=== PATIENT | male | born 1955 | race Caucasian/White ===

== ENCOUNTER 2024-04-08 10:03 | Inpatient (IN) | payer MEDICARE, SELFPAY ==
[2024-04-08] VITALS (9 sets, daily range): BP systolic 127–153; BP diastolic 84–91; PULSE 66–86; RESP 12–18; TEMP 36.9–37.3; O2SAT 92–96; BMI 25.2
--- NOTE | ~2024-04-08 | XR_ITS ---
EXAMINATION: XR CHEST CLINICAL INFORMATION: sob COMPARISON: None available. TECHNIQUE: Frontal view of the chest was obtained. FINDINGS: Minor bibasilar atelectasis versus early infiltrates. Upper lungs clear. Heart size normal with normal caliber pulmonary vessels. XR/XR chest 1V IMPRESSION: Query early bibasilar pneumonitis versus scarring and atelectasis. Electronically signed by: Waldo Jung MD 04/08/2024 12:41 PM [place]
--- NOTE | ~2024-04-08 | CT_ITS ---
EXAMINATION: CT ABDOMEN AND PELVIS WITH CONTRAST CLINICAL INFORMATION: Diffuse abdominal pain. COMPARISON: None available. TECHNIQUE: Multidetector volumetric images were obtained from the superior aspect of the liver through the pubic symphysis following administration 85 mL of Omnipaque 350 intravenous contrast. Sagittal and coronal reformatted images were obtained on the technologist's workstation. Oral contrast: No This CT examination was performed using dose optimization techniques as appropriate, variously including the following: *Automated exposure control *Adjustment of mA and/or kV according to patient size (this includes techniques or standardized protocols for targeted exams where dose is matched to indication/reason for exam; i.e. extremities or head) *Use of iterative reconstruction technique DLP: 428 mGy-cm FINDINGS: LUNG BASES: Linear scarring/atelectasis at both lung bases. No pleural effusion. LIVER, GALLBLADDER, AND BILIARY TREE: The liver is normal in size, shape, and attenuation. No focal hepatic lesion or biliary ductal dilatation is present. The gallbladder is unremarkable with no evidence of radiopaque gallstones, gallbladder wall thickening, or obvious pericholecystic inflammatory changes. PANCREAS: Unremarkable. SPLEEN: Unremarkable. ADRENAL GLANDS: Unremarkable. KIDNEYS AND URETERS: The kidneys are normal in size, shape, and attenuation. No hydronephrosis, hydroureter, or calculi seen. No perinephric stranding. BLADDER: Unremarkable. GASTROINTESTINAL TRACT: The small and large bowel are unremarkable. The appendix is unremarkable. ABDOMINAL WALL: No significant hernia is appreciated. LYMPH NODES: Normal. VASCULAR: Unremarkable. PELVIC VISCERA: Calcification in prostate. OSSEOUS STRUCTURES: No acute osseous abnormality. Multilevel degenerative spondylosis spine. Levoscoliosis mid lumbar spine. CT/CT abdomen pelvis w IV con IMPRESSION: No acute abnormality CT scan abdomen pelvis. Fleischner guidelines were followed. Electronically signed by: Vini Carver MD 04/08/2024 03:19 PM EST
--- NOTE | ~2024-04-08 | MR_ITS ---
EXAMINATION: MR ABDOMEN WITHOUT AND WITH CONTRAST CLINICAL INFORMATION: Rising lipase and abdominal pain. COMPARISON: Selected images of the abdomen and pelvic CT scan of 04/08/2024, 04/03/2024. Abdominal ultrasound of from 03/30/2024 and renal ultrasound of 04/05/2024. TECHNIQUE: MR abdomen was performed without and with use of 7.5 mL intravenous gadolinium contrast. Postcontrast images are performed in multiphase dynamic sequences. Imaging was performed in 3 planes. MRCP sequences were also obtained. Respiratory motion artifacts are present on multiple sequences limiting evaluation. Reportedly patient was having difficulty holding breath. FINDINGS: LUNG BASES: Bilateral mild basilar subsegmental atelectasis is noted. No pleural or pericardial effusion. LIVER, GALLBLADDER, AND BILIARY TREE: The liver is normal in size and contour. There is likely mild hepatic steatosis. There are 2 T2 hyperintense lesions in the posterior inferior right hepatic lobe medially (series 5 image 26), with the larger more posterior one measuring 1.1 cm in maximum dimension. A 0.7 cm T2 hyperintense lesion is noted in the superior liver (series 5 image 7) is 0.6 cm T2 hyperintense lesion in the caudate lobe (series 5 image 16). The hepatic lesions demonstrate hypointense signal on T1-weighted images. The evaluation of this lesions on the postcontrast images is limited due to respiratory motion artifacts however I believe that peripheral nodular discontinuous enhancement is noted at least in the posterior inferior right hepatic lobe lesions. Corresponding to largest lesion in the right inferior on the previous ultrasound note is made of hypoechoic lesion on the ultrasound of 03/30/2024. The liver lesions most probably represent hemangiomas. The gallbladder is unremarkable with no evidence of gallbladder wall thickening, or obvious pericholecystic inflammatory changes. No evidence of intrahepatic or extrahepatic biliary ductal dilatation. The common bile duct is normal in caliber measuring 0.3 cm. No filling defect is noted in the common mild duct. PANCREAS: There is a normal signal intensity of the pancreatic parenchyma with homogeneous enhancement. No focal liver lesion is seen. No peripancreatic stranding or fluid. No evidence of pancreas divisum or abnormal pancreatic ductal dilatation. SPLEEN: Normal. ADRENAL GLANDS: Normal. KIDNEYS AND URETERS: The kidneys are normal in size, shape, and enhance symmetrically. No hydronephrosis. No perinephric stranding. There is a 1.3 cm T1 and T2 hyperintense nonenhancing lesion in the lower pole of the left kidney laterally representing a proteinaceous cyst. A 0.4 cm simple cyst is noted in the upper pole of the right kidney. GASTROINTESTINAL TRACT: No abnormal bowel dilatation is noted. Note is again made of findings suggestive of small bowel malrotation with ligament of Treitz on the right side of the midline. PERITONEAL CAVITY: No evidence of free fluid. ABDOMINAL WALL: No significant hernia is appreciated. LYMPH NODES: No lymphadenopathy. VASCULAR: Aorta is normal in caliber and demonstrates normal enhancement. OSSEOUS STRUCTURES: Marrow signal normal. MR/MR abdomen wo/w con IMPRESSION: 1. No evidence of acute pancreatitis. No evidence of pancreatic mass. 2. No evidence of cholelithiasis or choledocholithiasis. No evidence of biliary ductal dilatation. 3. Mild hepatic steatosis. 4. Multiple T2 hyperintense lesions in the liver, largest measuring 1.1 cm in the posterior inferior right hepatic lobe. The evaluation of these lesions on the postcontrast images is limited due to respiratory motion artifacts however I believe that peripheral nodular discontinuous enhancement is noted at least in the posterior inferior right hepatic lobe lesions. The largest lesion in the right inferior hepatic lobe on the previous ultrasound corresponds to hypoechoic lesion on the ultrasound of 03/30/2024. The liver lesions most probably represent hemangiomas. Consider follow-up dynamic liver MRI in 6 months. 5. Findings suggestive of small bowel malrotation. Electronically signed by: Jo-Ann Burrell MD 04/12/2024 02:37 PM EST
--- NOTE | ~2024-04-08 | CT_ITS ---
EXAMINATION: CT HEAD WITHOUT CONTRAST CLINICAL INFORMATION: Headache. COMPARISON: None available. TECHNIQUE: Contiguous axial imaging was performed from the skull base to vertex without intravenous administration of contrast. This CT examination was performed using dose optimization techniques as appropriate, variously including the following: *Automated exposure control *Adjustment of mA and/or kV according to patient size (this includes techniques or standardized protocols for targeted exams where dose is matched to indication/reason for exam; i.e. extremities or head) *Use of iterative reconstruction technique DLP: 650 mGy-cm FINDINGS: There is no evidence of intracranial hemorrhage or extra-axial fluid collection. There is no mass effect, or edema. No CT evidence of acute territorial infarct. Ventricles, sulci, and cisterns are normal in size and configuration for patient age. No hydrocephalus. No midline shift. Negative hyperdense vessels sign. Negative subinsular ribbon sign. No significant white matter abnormalities. Sella appears normal. Mild atheromatous calcification of the bilateral carotid siphons and V4 segments vertebral arteries bilaterally. Globes and orbital contents image normally. No extracranial soft tissue abnormalities. Erosion of the membranous nasal septum. Mucous retention cyst right maxillary sinus. Otherwise the paranasal sinuses, mastoid air cells, and tympanic cavities are normally aerated. No suspicious bony abnormalities. Old nasal bone fractures suspected. CT/CT head/brain wo IV con IMPRESSION: 1. No acute intracranial abnormality. 2. Erosion of the membranous nasal septum, a finding which can be postsurgical, inflammatory, or be associated with cocaine abuse. 3. Mucous retention cyst right maxillary sinus. Electronically signed by: Luis Alfredo Davey MD 04/08/2024 04:08 PM [facility]
--- NOTE | 2024-04-08 10:34 | ED.GENADULT ---
HPI - General Adult General Chief complaint: General Medical Stated complaint: ABD PAIN,WEAK,NO KERWIN,FEVER X2W PER EMS Time Seen by Provider: 04/08/24 10:23 Source: patient Mode of arrival: EMS Limitations: no limitations History of Present Illness HPI narrative: THIS IS A VERY PLEASANT 68 YEARS OLD PATIENT PRESENTED TO THE EMERGENCY DEPARTMENT COMPLAINING OF ABDOMINAL PAIN GENERALIZED WEAKNESS POOR APPETITE NO EATING, HE WAS HOSPITALIZED A [facility], HE WAS TOLD THAT HE HAD E COLI INFECTION IN THE STOOLS HE HAS BEEN ON NOW FOR ABOUT 2 DAYS BUT UNABLE TO EAT Onset (ago): week(s) (2) Radiation: non-radiation Severity: moderate Quality: burning Pain Consistency: constant Relieving factors: none Associated symptoms: fever/chills, loss of appetite and malaise Related Data Home Medications ?Medication ?Instructions ?Recorded ?Confirmed L.acidophil,salivari-Bifido 1 cap PO QID 04/08/24 04/08/24 bifidum-Strep thermoph 175 mg capsule (Acidophilus Probiotic Blend) dicyclomine 10 mg capsule 10 mg PO Q6H PRN Abdominal 04/08/24 04/08/24 Discomfort omeprazole 40 mg capsule,delayed 40 mg PO BID@0630,1630 04/08/24 04/08/24 release ondansetron 4 mg disintegrating 4 mg PO Q8H PRN Nausea And Vomiting 04/08/24 04/08/24 tablet oxycodone 5 mg tablet 5 mg PO Q4H PRN moderate to severe 04/08/24 04/08/24 pain simethicone 80 mg chewable tablet 80 mg PO QID PRN flatulence 04/08/24 04/08/24 Previous Rx's ?Medication ?Instructions ?Recorded psyllium husk 3.4 gram/5.4 gram 1 tbsp PO DAILY #660 grams 04/11/24 oral powder (Metamucil) simethicone 80 mg chewable tablet 80 mg PO QID PRN abdominal 04/13/24 (Gas Relief (simethicone)) distention #120 tabs Allergies Allergy/AdvReac Type Severity Reaction Status Date / Time No Known Allergies Allergy Verified 04/08/24 10:34 Review of Systems Constitutional: Constitutional: Reports fatigue, Reports fever(s) and Reports poor appetite Gastrointestinal: Gastrointestinal: Reports abdominal pain Endocrine: Endocrine: Reports fatigue PMFSH Past Medical History PMFSH Narrative: DENIES Social History Social History Housing: House Do you presently have visiting nurse or other home services: No Alcohol intake: current Alcohol intake frequency: a few times a month Patient Tobacco Use Status: Never used Tobacco Advance Directives Date on File: 04/09/24 service: No Physical Exam ED Vital Signs: Vital Signs - 24 hr 04/08/24 10:29 04/08/24 10:46 04/08/24 11:17 Temperature 98.5 F 98.5 F 98.8 F Pulse Rate 74 74 82 Respiratory Rate 18 18 16 Blood Pressure 127/86 127/86 149/91 H Pulse Oximetry 94 94 96 Oxygen Delivery Method Room Air Room Air Room Air 04/08/24 12:03 04/08/24 14:07 Temperature 98.6 F Pulse Rate 80 78 Respiratory Rate 14 16 Blood Pressure 141/86 H 137/84 Pulse Oximetry 95 92 Oxygen Delivery Method Room Air Room Air BMI result Body Mass Index 25.2 MILD DISTRESS Const General: cooperative Nutritional Appearance: average body habitus Orientation/consciousness: patient oriented x3 HENMT Head: Yes normal to inspection Face and sinus: Yes normal facial exam Neck Neck: Yes normal visual inspection Chest Chest palpation & inspection: normal inspection of the chest Resp Effort & Inspection: normal respiratory effort Auscultation: clear to auscultation bilaterally Cardio Jugular venous distension: no JVD Palpation: normal PMI Rate: regular rate Rhythm: regular rhythm Bruits: no abdominal aortic bruits GI Inspection: Yes normal to inspection Palpation (GI): No Abdominal aortic bruit present, not soft, not firm and nontender Auscultation: normal bowel sounds Skin General skin exam: no rashes or lesions noted, elasticity normal and turgor normal Neuro General: patient oriented x3 Course Reevaluation(s) Reevaluation #1: SEEN BY GI DR FIELD IN ED,HE HAS ELEVATED LIPASE,WILL ADMIT FOR OBS Time: 15:51 Medications Administered Discontinued Medications Generic Name Dose Route Start Last Admin Trade Name Freq PRN Reason Stop Dose Admin Acetaminophen/Butalbital/Caffeine 1 tab 04/08/24 22:06 04/09/24 21:38 Butalb/Acetamin/Caff 50/325/40 Tablet PO 1 tab Q4H PRN Administration Migraine Headache Dicyclomine HCl 10 mg 04/08/24 17:37 04/11/24 20:16 Dicyclomine Hcl 10 Mg Capsule PO 10 mg Q6H PRN Administration Abdominal Discomfort Docusate Sodium 200 mg 04/08/24 21:00 04/12/24 21:48 Docusate Sodium 100 Mg Capsule PO 200 mg BEDTIME JOVANY Administration Enoxaparin Sodium 40 mg 04/08/24 19:00 04/12/24 18:07 Enoxaparin Sodium 40 Mg/0.4 Ml Syringe SUBCUT Not Given Q24H JOVANY Gadobutrol 7.5 ml 04/11/24 12:33 04/11/24 12:34 Gadobutrol 7.5 Ml Vial IVPUSH 04/11/24 12:34 7.5 ml ONCE ONE Administration Sodium Chloride 1,000 mls @ 999 mls/hr 04/08/24 10:30 04/08/24 12:36 Ns IVCONT 04/08/24 11:30 Infused .Q1H1M JOVANY Infusion Sodium Chloride 1,000 mls @ 100 mls/hr 04/08/24 13:30 04/08/24 17:58 Ns IVCONT Infused .Q10H JOVANY Infusion Lactated Ringer's 1,000 mls @ 100 mls/hr 04/08/24 17:45 04/09/24 07:26 Lr IVCONT 04/09/24 03:44 Infused .Q10H JOVANY Infusion Iohexol 85 ml 04/08/24 12:15 04/08/24 12:15 Iohexol 350 Mg/Ml 100 Ml Infus..Btl IV 04/08/24 12:16 85 ml ONCE ONE Administration Morphine Sulfate 4 mg 04/08/24 12:58 04/08/24 13:08 Morphine Sulfate 4 Mg/Ml Cartridge IVPUSH 04/08/24 12:59 4 mg ONCE ONE Administration Protocol Omeprazole 40 mg 04/09/24 06:30 04/10/24 15:41 Omeprazole 40 Mg Capsule. PO Not Given BID@0630,1630 [facility] Omeprazole 20 mg 04/11/24 06:30 04/13/24 05:53 Omeprazole 20 Mg Capsule. PO 20 mg BID@0630,1630 JOVANY Administration Ondansetron HCl 4 mg 04/08/24 10:29 04/08/24 10:57 Ondansetron Hcl 4 Mg/2 Ml Vial IVPUSH 04/08/24 10:30 4 mg ONCE ONE Administration Ondansetron HCl 4 mg 04/08/24 12:58 04/08/24 13:08 Ondansetron Hcl 4 Mg/2 Ml Vial IVPUSH 04/08/24 12:59 Not Given ONCE ONE Oxycodone HCl 5 mg 04/08/24 17:38 04/08/24 18:02 Oxycodone Hcl Immed Release 5 Mg Tablet PO 5 mg Q6H PRN Administration Pain, Moderate(Pain Scale 4-6) Polyethylene Glycol 17 gm 04/08/24 17:32 04/12/24 16:16 Polyethylene Glycol 3350 17 Gm Powd.Pack PO 17 gm DAILY PRN Administration Constipation Polyethylene Glycol 17 gm 04/11/24 16:37 04/11/24 16:53 Polyethylene Glycol 3350 17 Gm Powd.Pack PO 04/11/24 16:38 17 gm ONCE ONE Administration Potassium Chloride 40 meq 04/11/24 07:35 04/11/24 08:09 Potassium Chloride Er 20 Meq Tab.Er.Prt PO 04/11/24 07:36 40 meq ONCE ONE Administration Potassium Chloride 20 meq 04/11/24 15:06 04/11/24 15:27 Potassium Chloride Packet 20 Meq Packet PO 04/11/24 15:07 20 meq ONCE ONE Administration Simethicone 80 mg 04/08/24 17:37 04/12/24 16:16 Simethicone 80 Mg Tab.Chew PO 80 mg QID PRN Administration flatulence Sodium Chloride 3 ml 04/09/24 00:00 04/13/24 09:22 0.9 % Sodium Chloride Flush 3 Ml Syringe IVFLUSH 3 ml QSHIFT JOVANY Administration Medical Decision Making Medical Decision Making MDM Narrative: PATIENT PRESENTED WITH WEAKNESS ABDOMINAL Differential Diagnosis Differential Diagnoses: The differential diagnosis associated with the presentation includes RLL SEEN ROOM/PERFORATED BOWEL/COLITIS/DIVERTICULITIS Admission/Observation Consideration of admission/observation: Escalation of care including admission/observation considered Consult Healthcare Provider Management of the patient was discussed with: [facility] DR FIELD GI Lab Data [facility] Lab Attestation statement: I reviewed the patient's lab results. 04/11/24 05:43 04/12/24 05:31 Labs: Lab Results 04/08/24 04/08/24 04/08/24 Range/Units 10:39 10:48 12:11 WBC 8.8 (4.8-10.8) X10*3/uL RBC 5.09 (4.60-5.80) X10*6/uL Hgb 15.5 (14.0-18.0) g/dl Hct 43.8 (42.0-52.0) % MCV 86.1 (80.0-98.0) fL MCH 30.5 (27.0-33.0) pg MCHC 35.4 (31.0-36.0) g/dl RDW 12.7 (11.0-16.0) % Plt Count 204 (160-400) X10*3/uL MPV 9.1 L (9.4-12.4) fL Immature Gran % (Auto) 0.5 H (0.0-0.4) % Neut % (Auto) 81.4 H (45-73) % Lymph % (Auto) 11.1 L (20-40) % [place] % (Auto) 6.6 (2-11) % Eos % (Auto) 0.2 (0-4) % Baso % (Auto) 0.2 (0-2) % Lymph # (Auto) 1.0 L (1.2-4.9) X10*3/uL [place] # (Auto) 0.6 (0.1-1.2) X10*3/uL Eos # (Auto) 0.0 (0.0-0.4) X10*3/uL Baso # (Auto) 0.0 (0.0-0.2) X10*3/uL Abs Immat Gran (auto) 0.04 H (0.00-0.03) X10*3/uL Absolute Neuts (auto) 7.2 (2.0-8.3) x10*3/uL Absolute Nucleated RBC 0.000 (0.0-0.012) X10*3/uL Nucleated RBC % (auto) 0.0 (0.0-0.2) /100WBC ESR 6 (0-15) MM/HR Sodium 138 (135-145) mmol/L Potassium 3.8 (3.3-5.1) mmol/L Chloride 99 (96-108) mmol/L Carbon Dioxide 30 H (22-29) mmol/L Anion Gap 13 (12-20) BUN 13 (9-16) mg/dL Creatinine 0.88 (0.5-1.4) mg/dL Estim Creat Clear Calc 78.8 Estimated GFR > 60 Random Glucose 107 (60-115) mg/dL Lactic Acid 1.0 (0.5-2.0) mmol/L Calcium 9.2 (8.4-10.2) mg/dL Total Bilirubin 0.7 (0.0-1.0) mg/dL AST 18 (5-37) U/L ALT 14 (0-40) U/L Alkaline Phosphatase 29 L (39-117) U/L C-Reactive Protein 0.42 (< or = 0.50) mg/dL Total Protein 7.2 (6.5-8.0) g/dL Albumin 4.2 (3.5-5.0) g/dL Lipase 200 H (8-78) U/L Urine Color Yellow Urine Appearance Turbid Urine pH 7.0 (5.0-9.0) Ur Specific [place] 1.015 (1.005-1.025) Urine Protein Negative (Neg-Trace) mg/dL Urine Glucose (UA) Negative (Negative) mg/dL Urine Ketones Trace (Negative) mg/dL Urine Blood Negative (Negative) Urine Nitrite Negative (Negative) Ur Leukocyte Esterase Negative (Negative) Urine RBC 0-2 (0-2) /HPF Urine WBC 0-5 (0-5) /HPF Ur Squamous Epith Cells 0-2 (0-2) /HPF Calcium Oxalate Crystal Present Other Crystals Present Urine Bacteria None Seen (None Seen) Hyaline Casts 0-2 (0-2) /LPF Independent Interpretation I performed an independent interpretation of an: CT Scan Radiology Impression Discussion of test interpretation with radiology: I have reviewed the radiologist's reading. Radiologist Impression: LYMPH NODES: Normal. VASCULAR: Unremarkable. PELVIC VISCERA: Calcification in prostate. OSSEOUS STRUCTURES: No acute osseous abnormality. Multilevel degenerative spondylosis spine. Levoscoliosis mid lumbar spine. CT/CT abdomen pelvis w IV con IMPRESSION: No acute abnormality CT scan abdomen pelvis. Fleischner guidelines were followed. Electronically signed by: Vini Carver MD 04/08/2024 03:19 PM EST Dictated By: Vini Carver MD Signed By: <Electronically signed by Vini Carver MD in OV> 04/08/24 [id number] Independent Historian Clinical information obtained from an independent historian. History obtained from or confirmed by: Spouse External Record Review External record reviewed: Outpatient record REVIEWED D/C SUMMARY FROM [facility] Discharge Plan Discharge Clinical Impression: Abdominal pain Qualifiers: Abdominal location: generalized Qualified Code(s): R10.84 - Generalized abdominal pain Pancreatitis Qualifiers: Chronicity: acute Pancreatitis type: other Acute pancreatitis complication: unspecified Qualified Code(s): K85.80 - Other acute pancreatitis without necrosis or infection Patient Disposition: Admitted As Inpatient Interventions: Admission Worksheet (ED) Last Done: 04/09/24 10:32 Discharge Date/Time: 04/09/24 11:01
[2024-04-08 10:45] LABS: MANUAL DIFF FLAG NO
[2024-04-08 10:47] LABS: Basophils Percent Auto 0.2 % (0-2); Eosinophils Percent Auto 0.2 % (0-4); Hematocrit 43.8 % (42.0-52.0); Hemoglobin 15.5 g/dl (14.0-18.0); Imm Gran Abs Auto 0.04 X10*3/uL (0.00-0.03); Imm Gran Pct Auto 0.5 % (0.0-0.4); Lymphocytes Percent Auto 11.1 % (20-40); Mean Corpuscular HGB Conc 35.4 g/dl (31.0-36.0); Mean Corpuscular Hemoglobin 30.5 pg (27.0-33.0); Mean Corpuscular Volume 86.1 fL (80.0-98.0); Mean Platelet Volume 9.1 fL (9.4-12.4); Monocytes Absolute Auto 0.6 X10*3/uL (0.1-1.2); Monocytes Percent Auto 6.6 % (2-11); Neutrophils Absolute Auto 7.2 x10*3/uL (2.0-8.3); Neutrophils Percent Auto 81.4 % (45-73); Platelet Count 204 X10*3/uL (160-400); Red Blood Count 5.09 X10*6/uL (4.60-5.80); Red Cell Distribution Width 12.7 % (11.0-16.0); White Blood Count 8.8 X10*3/uL (4.8-10.8)
[2024-04-08] MEDS: 0.9 % Sodium Chloride 1,000 ML 999 ML IVCONT (10:57)
[2024-04-08] MEDS: ondansetron HCL 4 MG/2 ML VIAL IVPUSH (10:57)
[2024-04-08 10:59] LABS: C Reactive Protein 0.42 mg/dL (< or = 0.50)
[2024-04-08 11:04] LABS: Alanine Aminotransferase 14 U/L (0-40); Albumin Level 4.2 g/dL (3.5-5.0); Alkaline Phosphatase 29 U/L (39-117); Anion Gap 13 (12-20); Aspartate Amino Transferase 18 U/L (5-37); Bilirubin Total 0.7 mg/dL (0.0-1.0); Blood Urea Nitrogen 13 mg/dL (9-16); Calcium 9.2 mg/dL (8.4-10.2); Carbon Dioxide 30 mmol/L (22-29); Chloride 99 mmol/L (96-108); Creatinine Clr Calc Pharmacy 78.8; Estimated Glomerular Filt Rate > 60; Glucose Random 107 mg/dL (60-115); Lipase 200 U/L (8-78); Potassium 3.8 mmol/L (3.3-5.1); Sodium 138 mmol/L (135-145); Total Protein 7.2 g/dL (6.5-8.0)
[2024-04-08 11:30] LABS: Erythrocyte Sedimentation Rate 6 MM/HR (0-15)
--- NOTE | 2024-04-08 12:11 | PHA.MEDREC ---
Pharmacy Consult ? Medication Reconciliation Pharmacy has completed the medication reconciliation, utilized faxed discharge packet from [facility] from 04/06/2024.
[2024-04-08] MEDS: iohexoL 350 MG/ML 100 ML INFUS..BTL 85 ML IV (12:15)
[2024-04-08 12:23] LABS: Appearance Urine Turbid; Color Urine Yellow; Glucose Urine UA Negative (Negative); Leukocyte Esterase Urine Negative (Negative); Nitrite Urine Negative (Negative); Specific Gravity - Urine 1.015 (1.005-1.025); Urine Blood Negative (Negative); Urine Ketones Trace mg/dL (Negative); Urine Protein Negative (Neg-Trace)
[2024-04-08 12:45] LABS: Bacteria Urine None Seen (None Seen); Calcium Oxalate Crystals Urine Present; Hyaline Casts Urine 0-2 /LPF (0-2); Other Crystals Urine Present; RBC Urine 0-2 /HPF (0-2); Squamous Epithelial Cell Urine 0-2 /HPF (0-2); WBC Urine 0-5 /HPF (0-5)
[2024-04-08] MEDS: Morphine Sulfate 4 MG/ML CARTRIDGE IVPUSH (13:08)
[2024-04-08] MEDS: 0.9 % Sodium Chloride 1,000 ML 100 ML IVCONT (13:42)
--- NOTE | 2024-04-08 17:06 | PC.NURSE ---
Patient had been NPO since this am (states has not been able to get solids down in days). Patient/family aware no food/fluids until okayd by MD. At 4:45 this RN went into patients room and patient with alton at [facility]. Patient stating he has been taking sips because his family gave it to him. MRI and provider aware , mri stating will need to be done in the am
--- NOTE | 2024-04-08 17:42 | P.HPHOSP_ITS ---
History of Present Illness Date of Service: 04/08/24 Chief Complaint: Abdominal pain 68-yr old gentleman with no significant pmhx discharged from [facility] today after requiring treatment for abdominal pain, decreased appetite, generalized body ache and was diagnosed to have 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 his symptoms started after Thanksgiving, when he complained of mild stomach pain, decreased appetite, fatigue ,generalized body ache associated with urinary frequency, COVID, flu and tick-borne panel was negative, UA showed trace leukocytosis he was prescribed Macrobid but patient did not take anti biotics since had no worsening of urinary symptoms, and UC was negative, next day patient went to the emergency room for chills and fever of 99.5 night sweats ,persistent abdominal pain, he was recommended follow-up with worsening symptoms, on patient again visited ED with ongoing symptoms and was tested positive for strep throat without any symptoms of throat pain,no lymphadenopathy, he was given prescription of penicillin VK for 7 days and he was given Excedrin for headache, he was recommended stool softeners and MiraLax for constipation, 04/03 pt. went to see his PCP for ongoing symptoms of pain, fever, anorexia ,intermittent chills, subsequently he was sent to ED at [facility] since labs showed elevated lipase, he got admitted to [facility] on 04/03 where he underwent extensive testing CT abd/ pelvis showed no acute abnormality to suggest acute pancreatitis, showed signs of inflammation of intestine and colon, upper endoscopy showed mild inflammation in stomach/ duodenum likely exacerbated by Excedrin and sigmoidoscopy report not available, GI panel positive for entero toxigenic E coli, he was treated conservatively with fluids and antibiotics that were later discontinued, in regard to gastritis he was treated with PPI, his constipation was attributed to decreased oral intake ,stool softeners and laxatives were administered and he was discharged home on oxycodone, dicyclomine antiemetics, simethicone and omeprazole, he was recommended to discontinue Excedrin, penicillin V and sucralfate, due to ongoing symptoms of abdominal pain ,decreased appetite, chills and constipation, patient presented to [place] ED, he denies nausea, no vomiting last bowel movement few days ago was chocolate soup color, he denies throat pain, denies urinary frequency, no urgency, no high-grade fevers, denies sob ,no cough,workup in the ED showed sodium 138, potassium 3.8, normal renal function and LFTs,Elevated lipase 200, UA unremarkable, chest x-ray showed question early bibasilar pneumonitis versus scarring and atelectasis, head CT showed no acute intracranial abnormality, erosion of the membranous nasal septum, mucous retention cyst right maxillary sinus, CT abdomen and pelvis showed no acute abnormality. Review of Systems 2 Review of Systems: General no dizziness ,+ chills. CVS no chest pain, no palpitation. Respiratory no cough no sob Gastrointestinal no nausea no vomiting, abdominal pain and constipation no urgency, no frequency All other system reviewed and are negative PMFSH Pertinent family history: No family history of premature coronary artery disease Social History Housing: House Do you presently have visiting nurse or other home services: No Alcohol intake: current Alcohol intake frequency: a few times a month Patient Tobacco Use Status: Never used Tobacco Advance Directives Date on File: 04/09/24 Meds Allergies Allergy/AdvReac Type Severity Reaction Status Date / Time No Known Allergies Allergy Verified 04/08/24 10:34 Active Medications: Current Medications Acetaminophen (Acetaminophen 325 Mg Tablet) 650 mg PO Q6H PRN PRN Reason: Pain, Mild (Pain Scale 1-3), fever or headache Al Hydroxide/Mg Hydroxide (Magnesium Hydrox/Alum Hydrox 30 Ml Oral.Susp) 30 ml PO Q4H PRN PRN Reason: Heartburn Calcium Carbonate (Calcium Carbonate 750 Mg Tab.Chew) 750 mg PO Q4H PRN PRN Reason: Heartburn Dicyclomine HCl (Dicyclomine Hcl 10 Mg Capsule) 10 mg PO Q6H PRN PRN Reason: Abdominal Discomfort Docusate Sodium (Docusate Sodium 100 Mg Capsule) 200 mg PO BEDTIME JOVANY Enoxaparin Sodium (Enoxaparin Sodium 40 Mg/0.4 Ml Syringe) 40 mg SUBCUT Q24H [facility] Sodium Chloride (Ns) 1,000 mls @ 100 mls/hr IVCONT .Q10H [facility] Last Admin: 04/08/24 13:42 Dose: 100 mls/hr Lactated Ringer's (Lr) 1,000 mls @ 100 mls/hr IVCONT .Q10H [facility] Stop: 04/09/24 03:44 Magnesium Hydroxide (Milk Of Magnesia 30 Ml Oral.Susp) 30 ml PO DAILY PRN PRN Reason: Constipation Melatonin (Melatonin 3 Mg Tablet) 6 mg PO BEDTIME PRN PRN Reason: Insomnia Morphine Sulfate (Morphine Sulfate 4 Mg/Ml Cartridge) 3 mg IVPUSH Q4H PRN; Protocol PRN Reason: Pain, Severe (Pain Scale 7-10) Omeprazole (Omeprazole 40 Mg Capsule.Dr) 40 mg PO BID@0630,1630 [facility] Oxycodone HCl (Oxycodone Hcl Immed Release 5 Mg Tablet) 5 mg PO Q6H PRN PRN Reason: Pain, Moderate(Pain Scale 4-6) Polyethylene Glycol (Polyethylene Glycol 3350 17 Gm Powd.Pack) 17 gm PO DAILY PRN PRN Reason: Constipation Simethicone (Simethicone 80 Mg Tab.Chew) 80 mg PO QID PRN PRN Reason: flatulence Sodium Chloride (0.9 % Sodium Chloride Flush 3 Ml Syringe) [facility] Medications ?Medication ?Instructions ?Recorded ?Confirmed ?Last Taken ?Type L.acidophil,salivari-Bifido 1 cap PO QID 04/08/24 04/08/24 Unknown History bifidum-Strep thermoph 175 mg capsule (Acidophilus Probiotic Blend) dicyclomine 10 mg capsule 10 mg PO Q6H PRN Abdominal 04/08/24 04/08/24 Unknown History Discomfort omeprazole 40 mg capsule,delayed 40 mg PO BID@0630,1630 04/08/24 04/08/24 Unknown History release ondansetron 4 mg disintegrating 4 mg PO Q8H PRN Nausea And Vomiting 04/08/24 04/08/24 Unknown History tablet oxycodone 5 mg tablet 5 mg PO Q4H PRN moderate to severe 04/08/24 04/08/24 Unknown History pain simethicone 80 mg chewable tablet 80 mg PO QID PRN flatulence 04/08/24 04/08/24 Unknown History Physical Exam 2 Vital Signs and Narrative: Vital Signs: Last Vital Signs Temp 98.7 F 04/08/24 16:16 Pulse 75 04/08/24 16:16 Resp 12 04/08/24 16:16 BP 139/88 04/08/24 16:16 Pulse Ox 92 04/08/24 16:16 O2 Del Method Room Air 04/08/24 16:16 BMI result Body Mass Index 25.2 Const: Other: General awake alert x3, in no acute distress. Moist mucous membrane Anicteric sclera Neck supple no JVD. CVS regular rate rhythm, Respiratory lungs clear to auscultation, no respiratory distress, Gastrointestinal abdomen soft, non tender, bowel sounds audible, no guarding , no rigidity. Extremities no edema. Neuro non focal Skin no rash Psych appropriate affect Results Labs 04/08/24 10:39 04/08/24 10:39 Labs: Laboratory Results - last 24 hr 04/08/24 04/08/24 04/08/24 10:39 10:48 12:11 MCV 86.1 MCH 30.5 MCHC 35.4 RDW 12.7 Plt Count 204 MPV 9.1 L Immature Gran % (Auto) 0.5 H Neut % (Auto) 81.4 H Lymph % (Auto) 11.1 L [place] % (Auto) 6.6 Eos % (Auto) 0.2 Baso % (Auto) 0.2 Lymph # (Auto) 1.0 L [place] # (Auto) 0.6 Eos # (Auto) 0.0 Baso # (Auto) 0.0 Abs Immat Gran (auto) 0.04 H Absolute Neuts (auto) 7.2 Absolute Nucleated RBC 0.000 Nucleated RBC % (auto) 0.0 ESR 6 Anion Gap 13 Estim Creat Clear Calc 78.8 Estimated GFR > 60 Random Glucose 107 Lactic Acid 1.0 Calcium 9.2 Total Bilirubin 0.7 AST 18 ALT 14 Alkaline Phosphatase 29 L C-Reactive Protein 0.42 Total Protein 7.2 Albumin 4.2 Lipase 200 H Urine Color Yellow Urine Appearance Turbid Urine pH 7.0 Ur Specific [place] 1.015 Urine Protein Negative Urine Glucose (UA) Negative Urine Ketones Trace Urine Blood Negative Urine Nitrite Negative Ur Leukocyte Esterase Negative Urine RBC 0-2 Urine WBC 0-5 Ur Squamous Epith Cells 0-2 Calcium Oxalate Crystal Present Other Crystals Present Urine Bacteria None Seen Hyaline Casts 0-2 Imaging Radiologist's Impressions: Impressions Chest X-Ray 04/08/24 10:33 IMPRESSION: Query early bibasilar pneumonitis versus scarring and atelectasis. Electronically signed by: Waldo Jung MD 04/08/2024 12:41 PM EST Abdomen/Pelvis CT 04/08/24 12:12 IMPRESSION: No acute abnormality CT scan abdomen pelvis. Fleischner guidelines were followed. Electronically signed by: Vini Carver MD 04/08/2024 03:19 PM EST RP Head CT 04/08/24 14:17 IMPRESSION: 1. No acute intracranial abnormality. 2. Erosion of the membranous nasal septum, a finding which can be postsurgical, inflammatory, or be associated with cocaine abuse. 3. Mucous retention cyst right maxillary sinus. Electronically signed by: Luis Alfredo Dvaey MD 04/08/2024 04:08 PM EST RP Assessment and Plan (1) Abdominal pain: Qualifiers: Abdominal location: generalized Qualified Code(s): R10.84 - Generalized abdominal pain Status: Acute Plan 68-year-old gentleman with no significant past medical history presented with ongoing symptoms of abdominal pain, chills, decreased appetite, fatigue, constipation of several days duration, patient discharged from [facility] today with a diagnosis of enteritis and colitis due to entero toxigenic E coli managed conservatively as well as gastritis and duodenitis noted on upper endoscopy of note patient underwent a colonoscopy on 03/17 which showed an early tubular adenoma, patient being admitted to [facility] due to persistent symptoms of abdominal pain, chills, decreased appetite and constipation. Generalized abdominal pain No acute etiology noted question related to ongoing enteritis/colitis due to E coli Elevated lipase, with no imaging evidence of acute pancreatitis Will hold MRCP with normal LFTs and normal CT abdomen and pelvis Follow gastroenterology input. Continue supportive care with antiemetics, analgesics IV fluids and stool softeners Continue regular bland diet. Follow blood cultures Gastritis/duodenitis continue PPI, avoid NSAIDs Group a strep throat, asymptomatic , avoid antibiotics Linear scarring/atelectasis at both lung bases, no evidence of acute infection, asymptomatic with normal WBC, no fever,rec OOB and IS. DVT prophylaxis with Lovenox/ambulation In my clinical judgment patient requires 2 night inpatient hospitalization for management of ongoing abdominal pain with IV fluids IV analgesics and close clinical monitoring/expert consultation. Quality Stroke Does the patient have a stroke diagnosis?: No VTE Prior VTE?: No VTE Risk Level:: Medical - moderate - high VTE Device Contraindication: Treatment Not Indicated VTE Drug Contraindication: N/A - Med Ordered
[2024-04-08] MEDS: Lactated Ringers 1,000 ML 100 ML IVCONT (18:02)
[2024-04-08] MEDS: oxyCODONE HCl Immed Release 5 MG TABLET PO (18:02)
--- NOTE | 2024-04-08 18:15 | MHC.EDTECH ---
incentive spirometer was given to pt with education on how to properly use it. pt has a thorough understanding on the use and showed that he knows how to use it properly. RN made aware.
--- NOTE | 2024-04-08 18:32 | PC.NURSE ---
Patient c/o of 10/07 headache, oxycodone given as ordered. IVF infusing as ordered. Patient aware NPO after midnight. OOB ambulating to bathroom, gait steady.
--- NOTE | 2024-04-08 19:45 | PM.GICN ---
History of Present Illness Data of Consult Service Date: 04/08/24 Requesting physician: Rosy Olvera Primary Care Provider: Unknown Physician HPI Reason for consult: malaise 68-yr old gentleman who I am seeing for malaise and assorted symptoms. He presents with malaise, fatigue and poor appetite and vague mid abdominal discomfort without any relieving or worsening factors. He denies nausea or vomiting, but has had constipation and low grade fever. he first started to feel unwell after thanksgiving, and was eventually diagnosed with strep throat and given Pen V, but due to ongoing worsening sx he had tests done by PCP and eventually admitted to [facility] where he was found to have entero toxigenic E coli. He also had CT imaging with enteritis and EGD with gastritis. THe week before he got sick he also had a colonoscopy with a tubular adenoma removed. LABS: Sodium 138, potassium 3.8, normal renal function and LFTs,Elevated lipase 200, CRP neg UA unremarkable IMAGING: CT- a/p nml CT head- mucous retention cyst CXR: possible scarring at bases, pneumonitis Review of Systems Review of Systems: Constitutional : malaise ENT/Mouth : No sore throat, No Rhinorrhea Eyes: No Swelling, No Redness Cardiovascular : No Chest Pain, No SOB, No Edema Respiratory : No Cough, No Sputum, No Wheezing Gastrointestinal : see HPI Genitourinary : NO Dysuria, No Urinary Frequency, No Hematuria, No Urgency Musculoskeletal : No joint pain, No Myalgias, No Joint Swelling Skin : No Skin Lesions, No rash Neuro : + Weakness, No Numbness, No Dizziness, No Headache Psych : No Anxiety/Panic, No Depression Heme/Lymph: No Bruising, No Lymphadenopathy Endocrine : No Polyuria, No Polydipsia All other systems reviewed and are negative. [facility] Family History Pertinent family history: no FH of liver, bowel issues Social History Social History Alcohol intake: current Alcohol intake frequency: a few times a month Smoked in Last 30 Days: No Use of substances other than those prescribed or required for medical reasons: No Advance Directives: Yes Advance Directives Information Provided: Yes Advance Directives on File: No Do you have a plan to hurt others: No Plan Meds Allergies Allergy/AdvReac Type Severity Reaction Status Date / Time No Known Allergies Allergy Verified 04/08/24 10:34 Active Medications: Current Medications Acetaminophen (Acetaminophen 325 Mg Tablet) 650 mg PO Q6H PRN PRN Reason: Pain, Mild (Pain Scale 1-3), fever or headache Al Hydroxide/Mg Hydroxide (Magnesium Hydrox/Alum Hydrox 30 Ml Oral.Susp) 30 ml PO Q4H PRN PRN Reason: Heartburn Calcium Carbonate (Calcium Carbonate 750 Mg Tab.Chew) 750 mg PO Q4H PRN PRN Reason: Heartburn Dicyclomine HCl (Dicyclomine Hcl 10 Mg Capsule) 10 mg PO Q6H PRN PRN Reason: Abdominal Discomfort Docusate Sodium (Docusate Sodium 100 Mg Capsule) 200 mg PO BEDTIME JOVANY Enoxaparin Sodium (Enoxaparin Sodium 40 Mg/0.4 Ml Syringe) 40 mg SUBCUT Q24H [facility] Lactated Ringer's (Lr) 1,000 mls @ 100 mls/hr IVCONT .Q10H [facility] Stop: 04/09/24 03:44 Last Admin: 04/08/24 18:02 Dose: 100 mls/hr Magnesium Hydroxide (Milk Of Magnesia 30 Ml Oral.Susp) 30 ml PO DAILY PRN PRN Reason: Constipation Melatonin (Melatonin 3 Mg Tablet) 6 mg PO BEDTIME PRN PRN Reason: Insomnia Morphine Sulfate (Morphine Sulfate 4 Mg/Ml Cartridge) 3 mg IVPUSH Q4H PRN; Protocol PRN Reason: Pain, Severe (Pain Scale 7-10) Omeprazole (Omeprazole 40 Mg Capsule.Dr) 40 mg PO BID@0630,1630 [facility] Oxycodone HCl (Oxycodone Hcl Immed Release 5 Mg Tablet) 5 mg PO Q6H PRN PRN Reason: Pain, Moderate(Pain Scale 4-6) Last Admin: 04/08/24 18:02 Dose: 5 mg Polyethylene Glycol (Polyethylene Glycol 3350 17 Gm Powd.Pack) 17 gm PO DAILY PRN PRN Reason: Constipation Simethicone (Simethicone 80 Mg Tab.Chew) 80 mg PO QID PRN PRN Reason: flatulence Sodium Chloride (0.9 % Sodium Chloride Flush 3 Ml Syringe) 3 ml IVFLUSH QSHIFT [facility] Home Medications ?Medication ?Instructions ?Recorded ?Confirmed ?Last Taken ?Type L.acidophil,salivari-Bifido 1 cap PO QID 04/08/24 04/08/24 Unknown History bifidum-Strep thermoph 175 mg capsule (Acidophilus Probiotic Blend) dicyclomine 10 mg capsule 10 mg PO Q6H PRN Abdominal 04/08/24 04/08/24 Unknown History Discomfort omeprazole 40 mg capsule,delayed 40 mg PO BID@0630,1630 04/08/24 04/08/24 Unknown History release ondansetron 4 mg disintegrating 4 mg PO Q8H PRN Nausea And Vomiting 04/08/24 04/08/24 Unknown History tablet oxycodone 5 mg tablet 5 mg PO Q4H PRN moderate to severe 04/08/24 04/08/24 Unknown History pain simethicone 80 mg chewable tablet 80 mg PO QID PRN flatulence 04/08/24 04/08/24 Unknown History Physical Exam Vital Signs: Vital Signs: Last Vital Signs Temp 98.7 F 04/08/24 18:09 Pulse 66 04/08/24 18:09 Resp 15 04/08/24 18:09 BP 136/87 04/08/24 18:09 Pulse Ox 92 04/08/24 18:09 O2 Del Method Room Air 04/08/24 18:09 BMI result Body Mass Index 25.2 EXAM: GENERAL: The patient is well developed and nontoxic. VITAL SIGNS:see workflow HEENT: Nonicteric sclerae, PERRLA, EOMI. Oropharynx clear. Moist mucous membranes. Conjunctivae appear well perfused. No thyroid mass. CHEST: Chest wall is nontender. HEART: Regular rate and rhythm without murmurs. LUNGS: Clear to auscultation bilaterally but BS are more bronchovesicular ABDOMEN: Soft, positive bowel sounds, nontender, no organomegaly.no flank tenderness SKIN: No rash, no excessive bruising, petechiae, or purpura. NEUROLOGIC: Cranial nerves II-XII intact without motor/sensory deficit. Psych: normal affect Results Labs 04/08/24 10:39 04/08/24 10:39 Labs: Short CBC 04/08/24 Range/Units 10:39 WBC 8.8 (4.8-10.8) X10*3/uL Hgb 15.5 (14.0-18.0) g/dl Hct 43.8 (42.0-52.0) % Plt Count 204 (160-400) X10*3/uL BMP 04/08/24 10:39 Sodium 138 Potassium 3.8 Chloride 99 Carbon Dioxide 30 H BUN 13 Creatinine 0.88 Calcium 9.2 Liver Function 04/08/24 Range/Units 10:39 Total Bilirubin 0.7 (0.0-1.0) mg/dL AST 18 (5-37) U/L ALT 14 (0-40) U/L Alkaline Phosphatase 29 L (39-117) U/L Albumin 4.2 (3.5-5.0) g/dL Urine 04/08/24 Range/Units 12:11 Urine Color Yellow Urine Appearance Turbid Urine pH 7.0 (5.0-9.0) Ur Specific [place]le 1.015 (1.005-1.025) Urine Protein Negative (Neg-Trace) mg/dL Urine Glucose (UA) Negative (Negative) mg/dL Imaging CT scan - abdomen: Attestation: I personally reviewed and interpreted this imaging study as follows: (scoliosis and degenerative spinal disease, bowel loops nml, pancreas normal) Assessment and Plan (1) Abdominal pain: Qualifiers: Abdominal location: generalized Qualified Code(s): R10.84 - Generalized abdominal pain Status: Acute Plan 1/ Malaise with general weakness, recent Enterotoxigenc E coli, maybe post infectious fibromyalgia dejuan as inflammatory markers neg and imaging is neg except for incidental findings such as retention cyst in sinus and possible chronic lung scarring, spinal degeneration, may also have prolonged e coli infection PLAN: 1/ already had EGD and colo very recently so i think repeating these will not yield new information 2/ consider ID consult to discuss whether even now worth treating with cipro or azithro 3/ consider checking cortisol early AM and TSH Procedures Date of Service Date of Service: 04/08/24
[2024-04-08] MEDS: Butalb/Acetamin/Caff 50/325/40 TABLET 1 TAB PO (23:17)
[2024-04-09 01:49] VITALS: PULSE 67; RESP 20
[2024-04-09 04:41] VITALS: BP 128/87; PULSE 71; RESP 20; TEMP 36.9; O2SAT 92
[2024-04-09 09:04] VITALS: BP 144/77; PULSE 68; RESP 21; TEMP 36.8; O2SAT 90
[2024-04-09 09:11] VITALS: BMI 25.2
[2024-04-09 09:37] LABS: Thyroid Stimulating Hormone 1.72 uIU/mL (0.32-4.0)
[2024-04-09 10:26] LABS: Cortisol Random 16.3 ug/dL
[2024-04-09 11:18] VITALS: BP 143/91; PULSE 73; RESP 16; TEMP 36.7; O2SAT 91
--- NOTE | 2024-04-09 11:54 | MHC.IC ---
Please keep in private room due to recent Enterotoxic Ecoli found in stool. No contact precautions needed unless incontinent of stool.
--- NOTE | 2024-04-09 13:36 | HO.PM.IMPN ---
Subjective Subjective Date of Service: 04/09/24 Interval History: Being followed for abdominal pain, generalized fatigue Feeling better this morning, denies headache, no abdominal pain, feels Fioricet helped with symptoms, decreased by mouth intake, no bowel movement, no fevers, no chills, no cough, no shortness of breath. Review of Systems All other system reviewed and are negative. Physical Exam Vital Signs: Vital Signs: Last Vital Signs Temp 98.1 F 04/09/24 11:18 Pulse 73 04/09/24 11:18 Resp 16 04/09/24 11:18 BP 143/91 H 04/09/24 11:18 Pulse Ox 91 L 04/09/24 11:18 O2 Del Method Room Air 04/09/24 11:18 BMI result Body Mass Index 25.2 Const: Other: General awake alert x3, in no acute distress. Moist mucous membrane Anicteric sclera Neck supple no JVD. CVS regular rate rhythm, Respiratory lungs clear to auscultation, no respiratory distress, Gastrointestinal abdomen soft, non tender, bowel sounds audible, no guarding , no rigidity. Extremities no edema. Neuro non focal Skin no rash Psych appropriate affect Objective Data Active Medications Acetaminophen (Acetaminophen 325 Mg Tablet) 650 mg PO Q6H PRN PRN Reason: Pain, Mild (Pain Scale 1-3), fever or headache Acetaminophen/Butalbital/Caffeine (Butalb/Acetamin/Caff 50/325/40 Tablet) 1 tab PO Q4H PRN PRN Reason: Migraine Headache Last Admin: 04/08/24 23:17 Dose: 1 tab Documented By: WARD Al Hydroxide/Mg Hydroxide (Magnesium Hydrox/Alum Hydrox 30 Ml Oral.Susp) 30 ml PO Q4H PRN PRN Reason: Heartburn Calcium Carbonate (Calcium Carbonate 750 Mg Tab.Chew) 750 mg PO Q4H PRN PRN Reason: Heartburn Dicyclomine HCl (Dicyclomine Hcl 10 Mg Capsule) 10 mg PO Q6H PRN PRN Reason: Abdominal Discomfort Docusate Sodium (Docusate Sodium 100 Mg Capsule) 200 mg PO BEDTIME JOVANY Last Admin: 04/08/24 23:17 Dose: Not Given Documented By: WARD Non-Admin Reason: Patient Refused Enoxaparin Sodium (Enoxaparin Sodium 40 Mg/0.4 Ml Syringe) 40 mg SUBCUT Q24H [facility] Last Admin: 04/08/24 23:17 Dose: Not Given Documented By: WARD Non-Admin Reason: Patient Refused Magnesium Hydroxide (Milk Of Magnesia 30 Ml Oral.Susp) 30 ml PO DAILY PRN PRN Reason: Constipation Melatonin (Melatonin 3 Mg Tablet) 6 mg PO BEDTIME PRN PRN Reason: Insomnia Morphine Sulfate (Morphine Sulfate 4 Mg/Ml Cartridge) 3 mg IVPUSH Q4H PRN; Protocol PRN Reason: Pain, Severe (Pain Scale 7-10) Omeprazole (Omeprazole 40 Mg Capsule.Dr) 40 mg PO BID@0630,1630 [facility] Last Admin: 04/09/24 09:52 Dose: Not Given Documented By: BC Non-Admin Reason: Patient Refused Oxycodone HCl (Oxycodone Hcl Immed Release 5 Mg Tablet) 5 mg PO Q6H PRN PRN Reason: Pain, Moderate(Pain Scale 4-6) Last Admin: 04/08/24 18:02 Dose: 5 mg Documented By: ALEXY Polyethylene Glycol (Polyethylene Glycol 3350 17 Gm Powd.Pack) 17 gm PO DAILY PRN PRN Reason: Constipation Simethicone (Simethicone 80 Mg Tab.Chew) 80 mg PO QID PRN PRN Reason: flatulence Sodium Chloride (0.9 % Sodium Chloride Flush 3 Ml Syringe) 3 ml IVFLUSH QSHIFT [facility] Last Admin: 04/09/24 09:09 Dose: Not Given Documented By: BECKY Non-Admin Reason: Previously Administered Labs 04/08/24 10:39 04/08/24 10:39 Labs: Laboratory Results - last 24 hr 04/09/24 08:48 TSH 1.72 Random Cortisol 16.3 Microbiology Microbiology Results: Microbiology 04/08/24 10:48 Blood Culture - Preliminary Blood - Venous No growth after 24 hours. 04/08/24 10:39 Blood Culture - Preliminary Blood - Venous No growth after 24 hours. Assessment and Plan (1) Abdominal pain: Status: Acute (2) Weakness generalized: Status: Acute Plan 68-year-old gentleman with no significant past medical history presented with ongoing symptoms of abdominal pain, chills, decreased appetite, fatigue, constipation of several days duration, patient discharged from [facility] today with a diagnosis of enteritis and colitis due to entero toxigenic E coli managed conservatively as well as gastritis and duodenitis noted on upper endoscopy of note patient underwent a colonoscopy on 03/17 which showed an early tubular adenoma, patient being admitted to [facility] due to persistent symptoms of abdominal pain, chills, decreased appetite and constipation. Generalized abdominal pain/weakness No acute etiology noted question related to ongoing enteritis/colitis due to E coli Elevated lipase, with no imaging evidence of acute pancreatitis, normal LFTs and normal CT abdomen and pelvis Continue supportive care with antiemetics, analgesics, and stool softeners Continue regular bland diet. Blood cultures x2 negative, no diarrhea, avoid antibiotics Seen by GI they recommended TSH and cortisol both within normal range, no further testing as per GI Follow ID input Recommend out of bed to chair and ambulation, PT eval if noted to have unsteady gait. Gastritis/duodenitis continue PPI, avoid NSAIDs Group a strep throat, asymptomatic , avoid antibiotics Linear scarring/atelectasis at both lung bases, no evidence of acute infection, asymptomatic with normal WBC, no fever,rec OOB and IS. DVT prophylaxis with Lovenox/ambulation In my clinical judgment patient requires continued inpatient hospitalization for management of ongoing abdominal pain with IV fluids ,IV analgesics and close clinical monitoring/expert consultation. Quality Stroke Does the patient have a stroke diagnosis?: No VTE Prior VTE?: No VTE Risk Level:: Medical - moderate - high VTE Device Contraindication: Treatment Not Indicated VTE Drug Contraindication: N/A - Med Ordered
--- NOTE | 2024-04-09 14:05 | P.PNGI_ITS ---
Subjective Subjective Date of Service: 04/09/24 Interval History: still has weakness and malaise no abdominal pain no fevers or chills o2 sats have been 90% Critical Care Time (minutes): 0 Physical Exam 2 Vital Signs: Vital Signs: Last Vital Signs Temp 98.1 F 04/09/24 11:18 Pulse 73 04/09/24 11:18 Resp 16 04/09/24 11:18 BP 143/91 H 04/09/24 11:18 Pulse Ox 91 L 04/09/24 11:18 O2 Del Method Room Air 04/09/24 11:18 BMI result Body Mass Index 25.2 EXAM: GENERAL: The patient is well developed and nontoxic. VITAL SIGNS:see workflow HEENT: Nonicteric sclerae, PERRLA, EOMI. Oropharynx clear. Moist mucous membranes. Conjunctivae appear well perfused. No thyroid mass. CHEST: Chest wall is nontender. HEART: Regular rate and rhythm without murmurs. LUNGS: Clear to auscultation bilaterally, bronchovesicular BS ABDOMEN: Soft, positive bowel sounds, nontender, no organomegaly.no flank tenderness SKIN: No rash, no excessive bruising, petechiae, or purpura. NEUROLOGIC: Cranial nerves II-XII intact without motor/sensory deficit. Psych: normal affect Objective Data Labs 04/08/24 10:39 04/08/24 10:39 Labs: Laboratory Results - last 24 hr 04/09/24 08:48 TSH 1.72 Random Cortisol 16.3 Microbiology Microbiology Results: Microbiology 04/08/24 10:48 Blood - Venous Blood Culture - Preliminary No growth after 24 hours. 04/08/24 10:39 Blood - Venous Blood Culture - Preliminary No growth after 24 hours. Procedures Date of Service Date of Service: 04/09/24 Progress Note: A&P Assessment and plan (1) Weakness generalized: Status: Acute Plan 1/ Wekness and malaise with recent ETEC, and step throat, imaging and labs are non diagnostic. he does have low O2 sats and some CXR changes with nasal sinus changes in the head CT. DDX: ANCA vasculitis, fibromyalgia interstitial pneumonitis, atypical pneumonia, polymyalgia rheumatica PLAN: 1/ Consider CT chest imaging if O2 sats dont improve with incentive spirometry 2/ consider checking ANCA, 3/ might need to consider trial of pred if ongoing sx Time Spent With Patient Time: Total time managing care of this patient today ____ minutes. Quality Stroke Does the patient have a stroke diagnosis?: No VTE Prior VTE?: No VTE Risk Level:: Medical - moderate - high VTE Device Contraindication: Treatment Not Indicated VTE Drug Contraindication: N/A - Med Ordered
[2024-04-09] MEDS: Butalb/Acetamin/Caff 50/325/40 TABLET 1 TAB PO ×2 (14:23→21:38)
[2024-04-09 15:26] VITALS: BP 134/82; PULSE 74; RESP 14; TEMP 36.9; O2SAT 93
--- NOTE | 2024-04-09 16:10 | W.PM.IDCN ---
History of Present Illness Data of Consult Service Date: 04/09/24 Requesting physician: Rosy Olvera Primary Care Provider: Unknown Physician HPI Reason for consult: abdominal discomfort He had colonoscopy on 03/17 and showed tubular adenoma by report. After this time he had chills and fever and reported strep throat Group A but no sore throat. Grandson had strep throat. Patient received Penicillin and took for two days apparently. He had no temperature above 99 here and complained of only headache and received Fioricet. He had elevated lipase but only see up to 200 here. He doesnt have any significant chemical exposure. He took three days Doxycycline for concern over tick exposure. He had reported enterotoxigenic E coli but came from rectal swab? He has no travel or ill pet exposure. Review of Systems Review of Systems: Yes all other systems are reviewed and are negative [facility] Family History Family history: reviewed and not pertinent Social History Social History Housing: House Do you presently have visiting nurse or other home services: No Alcohol intake: current Alcohol intake frequency: a few times a month Patient Tobacco Use Status: Never used Tobacco Advance Directives Date on File: 04/09/24 Meds Allergies Allergy/AdvReac Type Severity Reaction Status Date / Time No Known Allergies Allergy Verified 04/08/24 10:34 Active Medications: Current Medications Acetaminophen (Acetaminophen 325 Mg Tablet) 650 mg PO Q6H PRN PRN Reason: Pain, Mild (Pain Scale 1-3), fever or headache Acetaminophen/Butalbital/Caffeine (Butalb/Acetamin/Caff 50/325/40 Tablet) 1 tab PO Q4H PRN PRN Reason: Migraine Headache Last Admin: 04/09/24 14:23 Dose: 1 tab Al Hydroxide/Mg Hydroxide (Magnesium Hydrox/Alum Hydrox 30 Ml Oral.Susp) 30 ml PO Q4H PRN PRN Reason: Heartburn Calcium Carbonate (Calcium Carbonate 750 Mg Tab.Chew) 750 mg PO Q4H PRN PRN Reason: Heartburn Dicyclomine HCl (Dicyclomine Hcl 10 Mg Capsule) 10 mg PO Q6H PRN PRN Reason: Abdominal Discomfort Docusate Sodium (Docusate Sodium 100 Mg Capsule) 200 mg PO BEDTIME JOVANY Last Admin: 04/08/24 23:17 Dose: Not Given Enoxaparin Sodium (Enoxaparin Sodium 40 Mg/0.4 Ml Syringe) 40 mg SUBCUT Q24H [facility] Last Admin: 04/08/24 23:17 Dose: Not Given Magnesium Hydroxide (Milk Of Magnesia 30 Ml Oral.Susp) 30 ml PO DAILY PRN PRN Reason: Constipation Melatonin (Melatonin 3 Mg Tablet) 6 mg PO BEDTIME PRN PRN Reason: Insomnia Morphine Sulfate (Morphine Sulfate 4 Mg/Ml Cartridge) 3 mg IVPUSH Q4H PRN; Protocol PRN Reason: Pain, Severe (Pain Scale 7-10) Omeprazole (Omeprazole 40 Mg Capsule.Dr) 40 mg PO BID@0630,1630 [facility] Last Admin: 04/09/24 09:52 Dose: Not Given Oxycodone HCl (Oxycodone Hcl Immed Release 5 Mg Tablet) 5 mg PO Q6H PRN PRN Reason: Pain, Moderate(Pain Scale 4-6) Last Admin: 04/08/24 18:02 Dose: 5 mg Polyethylene Glycol (Polyethylene Glycol 3350 17 Gm Powd.Pack) 17 gm PO DAILY PRN PRN Reason: Constipation Simethicone (Simethicone 80 Mg Tab.Chew) 80 mg PO QID PRN PRN Reason: flatulence Sodium Chloride (0.9 % Sodium Chloride Flush 3 Ml Syringe) 3 ml IVFLUSH QSHIFT [facility] Last Admin: 04/09/24 09:09 Dose: Not Given Home Medications ?Medication ?Instructions ?Recorded ?Confirmed ?Last Taken ?Type L.acidophil,salivari-Bifido 1 cap PO QID 04/08/24 04/08/24 Unknown History bifidum-Strep thermoph 175 mg capsule (Acidophilus Probiotic Blend) dicyclomine 10 mg capsule 10 mg PO Q6H PRN Abdominal 04/08/24 04/08/24 Unknown History Discomfort omeprazole 40 mg capsule,delayed 40 mg PO BID@0630,1630 04/08/24 04/08/24 Unknown History release ondansetron 4 mg disintegrating 4 mg PO Q8H PRN Nausea And Vomiting 04/08/24 04/08/24 Unknown History tablet oxycodone 5 mg tablet 5 mg PO Q4H PRN moderate to severe 04/08/24 04/08/24 Unknown History pain simethicone 80 mg chewable tablet 80 mg PO QID PRN flatulence 04/08/24 04/08/24 Unknown History Physical Exam Vital Signs: Vital Signs: Last Vital Signs Temp 98.4 F 04/09/24 15:26 Pulse 74 04/09/24 15:26 Resp 14 04/09/24 15:26 BP 134/82 04/09/24 15:26 Pulse Ox 93 04/09/24 15:26 O2 Del Method Room Air 04/09/24 15:26 BMI result Body Mass Index 25.2 Const: General: cooperative HEENT: Head: Yes normal to inspection Face and sinus: Yes normal facial exam Mouth: Normal oral and palatal mucosa present Teeth and gingiva: dentition normal Eyes: General: appearance normal, both eyes and all related structures Pupils: Equal, round and reactive pupils present Resp: Effort & Inspection: normal respiratory effort Cardio: Rate: regular rate Rhythm: regular rhythm GI: Palpation (GI): Soft to palpation and nontender : General: Yes no CVA tenderness Back/Spine/Pelvis: Back: no CVA tenderness Skin: General skin exam: no rashes or lesions noted Neuro: General: moves all extremities Cranial nerves: Yes Equal, round and reactive pupils present Extrem: General: Yes normal to inspection Psych: Appearance: grossly normal Affect: Indifferent affect present Results Labs 04/08/24 10:39 04/08/24 10:39 Microbiology Microbiology Results: Microbiology 04/08/24 10:48 Blood - Venous Blood Culture - Preliminary No growth after 24 hours. 04/08/24 10:39 Blood - Venous Blood Culture - Preliminary No growth after 24 hours. Assessment and Plan (1) Weakness generalized: Status: Acute (2) Abdominal pain: Qualifiers: Abdominal location: generalized Qualified Code(s): R10.84 - Generalized abdominal pain Status: Acute Plan No infection found at this time. He has no fever . Possible post antibiotic side effects and no evidence for MRCP need per Gastro . Would check Tspot ,HIV test and Hepatitis C. No further antibiotics at this time.
[2024-04-09 17:24] LABS: Erythrocyte Sedimentation Rate 6 MM/HR (0-15)
[2024-04-09] MEDS: 0.9 % Sodium Chloride Flush 3 ML SYRINGE IVFLUSH ×2 (17:28→18:59)
[2024-04-09 19:20] VITALS: BP 135/83; PULSE 74; RESP 16; TEMP 36.8; O2SAT 94
[2024-04-10] MEDS: Simethicone 80 MG TAB.CHEW PO ×2 (03:27→08:54)
[2024-04-10 03:37] VITALS: BP 135/86; PULSE 64; RESP 16; TEMP 36.5; O2SAT 95
[2024-04-10 07:39] VITALS: BP 141/87; PULSE 79; RESP 18; TEMP 36.9; O2SAT 92
[2024-04-10 08:05] LABS: HIV AB/AG Nonreactive (Nonreactive); HIV Num 1 0.07 S/CO (0.00-0.99); ~HepC Num1 0.06 S/CO (0.00-0.79); ~Hepatitis C Antibody Nonreactive (Nonreactive)
[2024-04-10] MEDS: Dicyclomine HCl 10 MG CAPSULE PO ×2 (08:54→22:02)
[2024-04-10] MEDS: 0.9 % Sodium Chloride Flush 3 ML SYRINGE IVFLUSH ×2 (09:01→23:12)
--- NOTE | 2024-04-10 09:11 | MHC.CM.PN ---
PT REPORTS HE LIVES WITH HIS AND IS INDEPENDENT WITH CARE HE HAS NO SERVICES AND NO DME COPY OF HCP REQUESTED PCP: EVANGELINA RODRIGUEZ IMM DELIVERED DCP: HOME NO SERVICES TO TRANSPORT
[2024-04-10] MEDS: polyethylene glycoL 3350 17 GM POWD.PACK PO (09:37)
[2024-04-10 12:20] LABS: Appearance Urine Clear; Color Urine Yellow; Glucose Urine UA Negative (Negative); Leukocyte Esterase Urine Negative (Negative); Nitrite Urine Negative (Negative); Urine Blood Negative (Negative); Urine Ketones Negative (Negative); Urine Protein Negative (Neg-Trace)
--- NOTE | 2024-04-10 14:36 | HO.PM.IMPN ---
Subjective Subjective Date of Service: 04/10/24 Interval History: Denies headache complaining of lower abdominal discomfort prior to urination, denies urinary frequency, no urgency, no hesitancy, no history of BPH, no fevers, no chills, no nausea, no vomiting denies lightheadedness or dizziness, has been ambulating short distances, feels tired, no bowel movement in last several days. No cough, no shortness of breath. Review of Systems All other system reviewed and negative Physical Exam Vital Signs: Vital Signs: Last Vital Signs Temp 98.5 F 04/10/24 07:39 Pulse 79 04/10/24 07:39 Resp 18 04/10/24 07:39 BP 141/87 H 04/10/24 07:39 Pulse Ox 92 04/10/24 07:39 O2 Del Method Room Air 04/10/24 07:39 BMI result Body Mass Index 25.2 Const: Other: General awake alert x3, nontoxic appearing, in no acute distress. Moist mucous membrane Anicteric sclera Neck supple no JVD. CVS regular rate rhythm, Respiratory lungs clear to auscultation, no respiratory distress, Gastrointestinal abdomen soft, non tender, bowel sounds audible, no guarding , no rigidity. Extremities no edema. Neuro non focal Skin no rash Psych appropriate affect Objective Data Active Medications Acetaminophen (Acetaminophen 325 Mg Tablet) 650 mg PO Q6H PRN PRN Reason: Pain, Mild (Pain Scale 1-3), fever or headache Acetaminophen/Butalbital/Caffeine (Butalb/Acetamin/Caff 50/325/40 Tablet) 1 tab PO Q4H PRN PRN Reason: Migraine Headache Last Admin: 04/09/24 21:38 Dose: 1 tab Documented By: AGATA Al Hydroxide/Mg Hydroxide (Magnesium Hydrox/Alum Hydrox 30 Ml Oral.Susp) 30 ml PO Q4H PRN PRN Reason: Heartburn Calcium Carbonate (Calcium Carbonate 750 Mg Tab.Chew) 750 mg PO Q4H PRN PRN Reason: Heartburn Dicyclomine HCl (Dicyclomine Hcl 10 Mg Capsule) 10 mg PO Q6H PRN PRN Reason: Abdominal Discomfort Last Admin: 04/10/24 08:54 Dose: 10 mg Documented By: MAJOR Docusate Sodium (Docusate Sodium 100 Mg Capsule) 200 mg PO BEDTIME JOVANY Last Admin: 04/09/24 20:23 Dose: Not Given Documented By: AGATA Non-Admin Reason: Patient Refused Enoxaparin Sodium (Enoxaparin Sodium 40 Mg/0.4 Ml Syringe) 40 mg SUBCUT Q24H [facility] Last Admin: 04/09/24 19:01 Dose: Not Given Documented By: AGATA Non-Admin Reason: Patient Refused Magnesium Hydroxide (Milk Of Magnesia 30 Ml Oral.Susp) 30 ml PO DAILY PRN PRN Reason: Constipation Melatonin (Melatonin 3 Mg Tablet) 6 mg PO BEDTIME PRN PRN Reason: Insomnia Morphine Sulfate (Morphine Sulfate 4 Mg/Ml Cartridge) 3 mg IVPUSH Q4H PRN; Protocol PRN Reason: Pain, Severe (Pain Scale 7-10) Omeprazole (Omeprazole 40 Mg Capsule.Dr) 40 mg PO BID@0630,1630 [facility] Last Admin: 04/10/24 05:32 Dose: Not Given Documented By: AGATA Non-Admin Reason: Patient Refused Oxycodone HCl (Oxycodone Hcl Immed Release 5 Mg Tablet) 5 mg PO Q6H PRN PRN Reason: Pain, Moderate(Pain Scale 4-6) Last Admin: 04/08/24 18:02 Dose: 5 mg Documented By: ALEXY Polyethylene Glycol (Polyethylene Glycol 3350 17 Gm Powd.Pack) 17 gm PO DAILY PRN PRN Reason: Constipation Last Admin: 04/10/24 09:37 Dose: 17 gm Documented By: MAJOR Simethicone (Simethicone 80 Mg Tab.Chew) 80 mg PO QID PRN PRN Reason: flatulence Last Admin: 04/10/24 08:54 Dose: 80 mg Documented By: MAJOR Sodium Chloride (0.9 % Sodium Chloride Flush 3 Ml Syringe) 3 ml IVFLUSH QSHIFT [facility] Last Admin: 04/10/24 09:01 Dose: 3 ml Documented By: MAJOR Labs 04/08/24 10:39 04/08/24 10:39 Labs: Laboratory Results - last 24 hr 04/09/24 04/10/24 15:41 09:00 ESR 6 Total Creatine Kinase 38 Urine Color Yellow Urine Appearance Clear Urine pH 7.0 Ur Specific [place] 1.010 Urine Protein Negative Urine Glucose (UA) Negative Urine Ketones Negative Urine Blood Negative Urine Nitrite Negative Ur Leukocyte Esterase Negative Hepatitis C Ab (EIA) Nonreactive HIV 1&2 Ab/P24 Ag 4thGn Nonreactive Microbiology Microbiology Results: Microbiology 04/08/24 10:48 Blood Culture - Preliminary Blood - Venous No growth after 48 hours. 04/08/24 10:39 Blood Culture - Preliminary Blood - Venous No growth after 48 hours. Assessment and Plan (1) Weakness generalized: Status: Acute (2) Abdominal pain: Status: Acute Plan 68-year-old gentleman with no significant past medical history presented with ongoing symptoms of abdominal pain, chills, decreased appetite, fatigue, constipation of several days duration, patient discharged from [facility] today with a diagnosis of enteritis and colitis due to entero toxigenic E coli managed conservatively as well as gastritis and duodenitis noted on upper endoscopy of note patient underwent a colonoscopy on 03/17 which showed an early tubular adenoma, patient being admitted to [facility] due to persistent symptoms of abdominal pain, chills, decreased appetite and constipation. Generalized abdominal pain/generalized weakness No acute etiology noted question related to recent bout of enteritis/colitis due to E coli, multiple antibiotics, prolonged illness Elevated lipase, with no imaging evidence of acute pancreatitis, normal LFTs and normal CT abdomen and pelvis Blood cultures x2 negative, ESR 3, normal TSH and cortisol Immunoglobulin and T spot pending, hepatitis-C and HIV nonreactive Continue regular bland diet, add supplements due to decreased by mouth intake. add stool softeners, continue antispasmodic, gas X Recommend out of bed to chair and ambulation, Follow CBC electrolytes and lipase at a.m. Follow ID and GI recommendation Gastritis/duodenitis continue PPI, avoid NSAIDs Group a strep throat, asymptomatic , avoid antibiotics Linear scarring/atelectasis at both lung bases, no evidence of acute infection, no cough, no shortness of breath, asymptomatic with normal WBC, no fever,Low ESR less likely connective tissue disease, pneumonia or PE rec OOB and IS. DVT prophylaxis with Lovenox/ambulation In my clinical judgment patient requires continued inpatient hospitalization for management of ongoing abdominal pain with IV analgesics and close clinical monitoring/expert consultation. Quality Stroke Does the patient have a stroke diagnosis?: No VTE Prior VTE?: No VTE Risk Level:: Medical - moderate - high VTE Device Contraindication: Treatment Not Indicated VTE Drug Contraindication: N/A - Med Ordered
[2024-04-10 15:10] VITALS: BP 138/76; PULSE 82; RESP 16; TEMP 37.3; O2SAT 95
[2024-04-10 16:53] LABS: IgA 169 mg/dL (70-320); IgG 897 mg/dL (600-1540); IgM 101 mg/dL (50-300)
[2024-04-10 19:35] VITALS: BP 147/80; PULSE 76; RESP 18; TEMP 36.8; O2SAT 94
[2024-04-10] MEDS: Docusate Sodium 100 MG CAPSULE 200 MG PO (20:19)
[2024-04-10 21:59] LABS: Myeloperoxidase Antibody <1.0 AI; Proteinase 3 PR3 Antibodies <1.0 AI
[2024-04-11 03:52] VITALS: BP 133/82; PULSE 78; RESP 18; TEMP 37; O2SAT 95
[2024-04-11] MEDS: Omeprazole 20 MG CAPSULE.DR PO ×2 (06:07→16:54)
[2024-04-11 06:19] LABS: Hematocrit 39.6 % (42.0-52.0); Hemoglobin 14.2 g/dl (14.0-18.0); Mean Corpuscular HGB Conc 35.9 g/dl (31.0-36.0); Mean Corpuscular Hemoglobin 30.3 pg (27.0-33.0); Mean Corpuscular Volume 84.6 fL (80.0-98.0); Mean Platelet Volume 9.4 fL (9.4-12.4); Platelet Count 204 X10*3/uL (160-400); Red Blood Count 4.68 X10*6/uL (4.60-5.80); Red Cell Distribution Width 12.7 % (11.0-16.0); White Blood Count 9.4 X10*3/uL (4.8-10.8)
[2024-04-11 06:34] LABS: Anion Gap 13 (12-20); Blood Urea Nitrogen 9 mg/dL (9-16); Calcium 8.8 mg/dL (8.4-10.2); Carbon Dioxide 24 mmol/L (22-29); Chloride 101 mmol/L (96-108); Creatinine Clr Calc Pharmacy 87.7; Estimated Glomerular Filt Rate > 60; Glucose Random 107 mg/dL (60-115); Lipase 254 U/L (8-78); Potassium 3.2 mmol/L (3.3-5.1); Sodium 135 mmol/L (135-145)
[2024-04-11 07:01] VITALS: BP 137/90; PULSE 84; RESP 16; TEMP 36.8; O2SAT 94
[2024-04-11] MEDS: Potassium Chloride ER 20 MEQ TAB.ER.PRT 40 MEQ PO (08:09)
[2024-04-11] MEDS: 0.9 % Sodium Chloride Flush 3 ML SYRINGE IVFLUSH ×3 (08:11→20:16)
[2024-04-11] MEDS: gadobutroL 7.5 ML VIAL IVPUSH (12:34)
[2024-04-11 14:49] VITALS: BP 134/82; PULSE 81; RESP 16; TEMP 36.8; O2SAT 94
[2024-04-11] MEDS: Potassium Chloride Packet 20 MEQ PACKET PO (15:27)
--- NOTE | 2024-04-11 16:18 | HO.PM.IMPN ---
Subjective Subjective Date of Service: 04/11/24 Interval History: Continued to feel weak, no abdominal pain just discomfort no nausea, no vomiting, no shortness of breath, no headache, no fevers, no chills, unable to swallow potassium pill and coughing with potassium crushed in applesauce. Review of Systems All other system reviewed and are negative. Physical Exam Vital Signs: Vital Signs: Last Vital Signs Temp 98.3 F 04/11/24 14:49 Pulse 81 04/11/24 14:49 Resp 16 04/11/24 14:49 BP 134/82 04/11/24 14:49 Pulse Ox 94 04/11/24 14:49 O2 Del Method Room Air 04/11/24 14:49 BMI result Body Mass Index 25.2 Const: Other: General awake alert x3, nontoxic appearing, in no acute distress. Moist mucous membrane Anicteric sclera Neck supple no JVD. CVS regular rate rhythm, Respiratory lungs clear to auscultation, no respiratory distress, Gastrointestinal abdomen soft, non tender, bowel sounds audible, no guarding , no rigidity. Extremities no edema. Neuro non focal Skin no rash Psych appropriate affect Objective Data Active Medications Acetaminophen (Acetaminophen 325 Mg Tablet) 650 mg PO Q6H PRN PRN Reason: Pain, Mild (Pain Scale 1-3), fever or headache Acetaminophen/Butalbital/Caffeine (Butalb/Acetamin/Caff 50/325/40 Tablet) 1 tab PO Q4H PRN PRN Reason: Migraine Headache Last Admin: 04/09/24 21:38 Dose: 1 tab Documented By: JESSENIAQC Al Hydroxide/Mg Hydroxide (Magnesium Hydrox/Alum Hydrox 30 Ml Oral.Susp) 30 ml PO Q4H PRN PRN Reason: Heartburn Calcium Carbonate (Calcium Carbonate 750 Mg Tab.Chew) 750 mg PO Q4H PRN PRN Reason: Heartburn Dicyclomine HCl (Dicyclomine Hcl 10 Mg Capsule) 10 mg PO Q6H PRN PRN Reason: Abdominal Discomfort Last Admin: 04/10/24 22:02 Dose: 10 mg Documented By: DOMINIC Docusate Sodium (Docusate Sodium 100 Mg Capsule) 200 mg PO BEDTIME JOVANY Last Admin: 04/10/24 20:19 Dose: 200 mg Documented By: DOMINIC Enoxaparin Sodium (Enoxaparin Sodium 40 Mg/0.4 Ml Syringe) 40 mg SUBCUT Q24H [facility] Last Admin: 04/10/24 17:36 Dose: Not Given Documented By: MAJOR Non-Admin Reason: Patient Refused Magnesium Hydroxide (Milk Of Magnesia 30 Ml Oral.Susp) 30 ml PO DAILY PRN PRN Reason: Constipation Melatonin (Melatonin 3 Mg Tablet) 6 mg PO BEDTIME PRN PRN Reason: Insomnia Omeprazole (Omeprazole 20 Mg Capsule.Dr) 20 mg PO BID@0630,1630 [facility] Last Admin: 04/11/24 06:07 Dose: 20 mg Documented By: RUBIA Oxycodone HCl (Oxycodone Hcl Immed Release 5 Mg Tablet) 5 mg PO Q6H PRN PRN Reason: Pain, Moderate(Pain Scale 4-6) Last Admin: 04/08/24 18:02 Dose: 5 mg Documented By: ALEXY Polyethylene Glycol (Polyethylene Glycol 3350 17 Gm Powd.Pack) 17 gm PO DAILY PRN PRN Reason: Constipation Last Admin: 04/10/24 09:37 Dose: 17 gm Documented By: MAJOR Simethicone (Simethicone 80 Mg Tab.Chew) 80 mg PO QID PRN PRN Reason: flatulence Last Admin: 04/10/24 08:54 Dose: 80 mg Documented By: MAJOR Sodium Chloride (0.9 % Sodium Chloride Flush 3 Ml Syringe) 3 ml IVFLUSH QSHIFT [facility] Last Admin: 04/11/24 08:11 Dose: 3 ml Documented By: LETITIA Labs 04/11/24 05:43 04/11/24 05:43 Labs: Laboratory Results - last 24 hr 04/09/24 04/11/24 15:41 05:43 MCV 84.6 MCH 30.3 MCHC 35.9 RDW 12.7 Plt Count 204 MPV 9.4 Absolute Nucleated RBC 0.000 Nucleated RBC % (auto) 0.0 Anion Gap 13 Estim Creat Clear Calc 87.7 Estimated GFR > 60 Random Glucose 107 Calcium 8.8 Lipase 254 H IgG Total 897 IgA Total 169 IgM 101 Proteinase 3 (PR3) Ab <1.0 Myeloperoxidase Ab <1.0 Microbiology Microbiology Results: Microbiology 04/08/24 10:48 Blood Culture - Preliminary Blood - Venous No growth after 48 hours. 04/08/24 10:39 Blood Culture - Preliminary Blood - Venous No growth after 48 hours. Assessment and Plan (1) Weakness generalized: Status: Acute (2) Abdominal pain: Status: Acute Plan 68-year-old gentleman with no significant past medical history presented with ongoing symptoms of abdominal pain, chills, decreased appetite, fatigue, constipation of several days duration, patient discharged from [facility] today with a diagnosis of enteritis and colitis due to entero toxigenic E coli managed conservatively as well as gastritis and duodenitis noted on upper endoscopy of note patient underwent a colonoscopy on 03/17 which showed an early tubular adenoma, patient being admitted to [facility] due to persistent symptoms of abdominal pain, chills, decreased appetite and constipation. Generalized abdominal pain/generalized weakness No acute etiology noted question related to recent bout of enteritis/colitis due to E coli, multiple courses of antibiotics, prolonged illness Elevated lipase, with no imaging evidence of acute pancreatitis, normal LFTs and normal CT abdomen and pelvis Blood cultures x2 negative, ESR 3, normal TSH and cortisol Immunoglobulin normal , hepatitis-C and HIV nonreactive, T spot pending Continue regular bland diet, add supplements due to decreased by mouth intake. Continue stool softeners, continue antispasmodic, gas X Recommend out of bed to chair and ambulation, Repeat lipase bumped to 254, case discussed with Dr. Hess will proceed with MRCP If MRCP negative will be discharged home with close outpatient follow-up with PCP Mild acute hypokalemia will replete and follow labs. Gastritis/duodenitis continue PPI, avoid NSAIDs Group a strep throat, asymptomatic , avoid antibiotics Linear scarring/atelectasis at both lung bases, no evidence of acute infection, no cough, no shortness of breath, asymptomatic with normal WBC, no fever,Low ESR less likely connective tissue disease, pneumonia or PE rec OOB and IS. DVT prophylaxis with Lovenox/ambulation In my clinical judgment patient requires continued inpatient hospitalization for management of ongoing abdominal pain , generalized weakness and expert consultation. Quality Stroke Does the patient have a stroke diagnosis?: No VTE Prior VTE?: No VTE Risk Level:: Medical - moderate - high VTE Device Contraindication: Treatment Not Indicated VTE Drug Contraindication: N/A - Med Ordered
--- NOTE | 2024-04-11 16:22 | P.DS_ITS ---
DS: Providers Provider Date of Service: 04/13/24 <David Burrell MD - Last Filed: 04/13/24 12:18> Date of admission: 04/08/24 17:27 <Rosy Olvera MD - Last Filed: 04/11/24 16:23> Date of discharge: 04/13/24 <David Burrell MD - Last Filed: 04/13/24 12:18> Primary care physician: Dean Perez MD <Rosy Olvera MD - Last Filed: 04/11/24 16:23> Consults: 04/08/24 15:48 Consult to Gastroenterology Stat Consulting Provider: Nina Salvador Reason for consultation: PANCREATITIS Has provider been notified: Yes 04/09/24 07:53 Consult to Infectious Diseases Routine Consulting Provider: Diana Nair Reason for consultation: enterotoxigenic e.coli Has provider been notified: No <Rosy Olvera MD - Last Filed: 04/11/24 16:23> DS: Diagnosis Discharge Diagnosis (1) Weakness generalized: Status: Acute <Rosy Olvera MD - Last Filed: 04/11/24 16:23> (2) Abdominal pain: Status: Acute <Rosy Olvera MD - Last Filed: 04/11/24 16:23> DS: Summary Hospital Course Hospital Course: History of presenting illness: Date of Service: 04/08/24 Chief Complaint: Abdominal pain 68-yr old gentleman with no significant pmhx discharged [place] [facility] today after requiring treatment for abdominal pain, decreased appetite, generalized body ache and was diagnosed to have 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 his symptoms started after Thanks[place], when he complained of mild stomach pain, decreased appetite, fatigue ,generalized body ache associated with urinary frequency, COVID, flu and tick-borne panel was negative, UA showed trace leukocytosis he was prescribed Macrobid but patient did not take anti biotics since had no worsening of urinary symptoms, and UC was negative, next day patient went to the emergency room for chills and fever of 99.5 night sweats ,persistent abdominal pain, he was recommended follow-up with worsening symptoms, on patient again visited ED with ongoing symptoms and was tested positive for strep throat without any symptoms of throat pain,no lymphadenopathy, he was given prescription of penicillin VK for 7 days and he was given Excedrin for headache, he was recommended stool softeners and MiraLax for constipation, 04/03 pt. went to see his PCP for ongoing symptoms of pain, fever, anorexia ,intermittent chills, subsequently he was sent to ED at [facility] since labs showed elevated lipase, he got admitted to [facility] on 04/03 where he underwent extensive testing CT abd/ pelvis showed no acute abnormality to suggest acute pancreatitis, showed signs of inflammation of intestine and colon, upper endoscopy showed mild inflammation in stomach/ duodenum likely exacerbated by Excedrin and sigmoidoscopy report not available, GI panel positive for entero toxigenic E coli, he was treated conservatively with fluids and antibiotics that were later discontinued, in regard to gastritis he was treated with PPI, his constipation was attributed to decreased oral intake ,stool softeners and laxatives were administered and he was discharged home on oxycodone, dicyclomine antiemetics, simethicone and omeprazole, he was recommended to discontinue Excedrin, penicillin V and sucralfate, due to ongoing symptoms of abdominal pain ,decreased appetite, chills and constipation, patient presented to [place] ED, he denies nausea, no vomiting last bowel movement few days ago was chocolate soup color, he denies throat pain, denies urinary frequency, no urgency, no high-grade fevers, denies sob ,no cough,workup in the ED showed sodium 138, potassium 3.8, normal renal function and LFTs,Elevated lipase 200, UA unremarkable, chest x-ray showed question early bibasilar pneumonitis versus scarring and atelectasis, head CT showed no acute intracranial abnormality, erosion of the membranous nasal septum, mucous retention cyst right maxillary sinus, CT abdomen and pelvis showed no acute abnormality. Hospital course: 68-year-old gentleman with no significant past medical history presented with ongoing symptoms of abdominal pain, chills, decreased appetite, fatigue, constipation of several days duration, patient discharged from [facility] today with a diagnosis of enteritis and colitis due to entero toxigenic E coli managed conse rvatively as well as gastritis and duodenitis noted on upper endoscopy of note patient underwent a colonoscopy on 03/17 which showed an early tubular adenoma, patient being admitted to [facility] due to persistent symptoms of abdominal pain, chills, decreased appetite and constipation. 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 add stool softeners, continue antispasmodic, gas X ambulation recommened Seen by GI with differential including vasculitis -- ANCA studies sent and pending; also recommended possible trial of steroids if symptoms continued -- will defer this to PCP Follow CBC electrolytes and lipase at a.m. Follow ID and GI recommendation Gastritis/duodenitis continue PPI, avoid NSAIDs Group a strep throat, asymptomatic , avoid antibiotics Linear scarring/atelectasis at both lung bases, no evidence of acute infection, no cough, no shortness of breath, asymptomatic with normal WBC, no fever,Low ESR less likely connective tissue disease, pneumonia or PE rec OOB and IS. Pt seen and examined on the day of discharge. States he feels 40% improved compared to admission. bedside and all questions answered. <Rosy Olvera MD - Last Filed: 04/11/24 16:23> Time Attestation Discharge Coordination Time (in mins): 45 <David Burrell MD - Last Filed: 04/13/24 12:18> Quality: Safe Use of Opioids Does Pt have an Active Cancer Diagnosis on the Problem List?: No <David Burrell MD - Last Filed: 04/13/24 12:18> Quality: Stroke Does the patient have a stroke diagnosis?: No <David Burrell MD - Last Filed: 04/13/24 12:18> Physical Exam Vital Signs: Vital Signs: Last Vital Signs Temp 98.3 F 04/11/24 14:49 Pulse 81 04/11/24 14:49 Resp 16 04/11/24 14:49 BP 134/82 04/11/24 14:49 Pulse Ox 94 04/11/24 14:49 O2 Del Method Room Air 04/11/24 14:49 BMI result Body Mass Index 25.2 <Rosy Olvera MD - Last Filed: 04/11/24 16:23> DS: Data Data Completed and Pending Labs on day of discharge: Laboratory Results - last 24 hr 04/09/24 04/11/24 15:41 05:43 WBC 9.4 RBC 4.68 Hgb 14.2 Hct 39.6 L MCV 84.6 MCH 30.3 MCHC 35.9 RDW 12.7 Plt Count 204 MPV 9.4 Absolute Nucleated RBC 0.000 Nucleated RBC % (auto) 0.0 Sodium 135 Potassium 3.2 L Chloride 101 Carbon Dioxide 24 Anion Gap 13 BUN 9 Creatinine 0.79 Estim Creat Clear Calc 87.7 Estimated GFR > 60 Random Glucose 107 Calcium 8.8 Lipase 254 H IgG Total 897 IgA Total 169 IgM 101 Proteinase 3 (PR3) Ab <1.0 Myeloperoxidase Ab <1.0 Preliminary micro results at discharge 04/08/24 10:48 Blood Culture - Preliminary Blood - Venous No growth after 48 hours. 04/08/24 10:39 Blood Culture - Preliminary Blood - Venous No growth after 48 hours. <Rosy Olvera MD - Last Filed: 04/11/24 16:23> Discharge Plan Discharge Anticipated Discharge Date/Time: 04/13/24 11:42 <Rosy Olvera MD - Last Filed: 04/11/24 16:23> Patient Disposition: Home, Self-Care <Rosy Olvera MD - Last Filed: 04/11/24 16:23> Discharge Diagnosis: Generalized weakness Abdominal pain. <Rosy Olvera MD - Last Filed: 04/11/24 16:23> Generalized weakness Abdominal pain. <David Burrell MD - Last Filed: 04/13/24 12:18> Referrals: Dean Perez MD [Primary Care Provider] - 1 Week <Rosy Olvera MD - Last Filed: 04/11/24 16:23> Discharge Medications: New Metamucil 3.4 gram/5.4 gram powder 1 tbsp PO DAILY Qty: 660 0RF Rx Instructions: mix into at least 8 oz of water or juice before administering simethicone [Gas Relief (simethicone)] 80 mg tablet,chewable 80 mg PO QID PRN (Reason: abdominal distention) Qty: 120 0RF Continued omeprazole 40 mg capsule,delayed release(DR/EC) 40 mg PO BID@0630,1630 ondansetron 4 mg tablet,disintegrating 4 mg PO Q8H PRN (Reason: Nausea And Vomiting) dicyclomine 10 mg capsule 10 mg PO Q6H PRN (Reason: Abdominal Discomfort) simethicone 80 mg tablet,chewable 80 mg PO QID PRN (Reason: flatulence) oxycodone 5 mg tablet 5 mg PO Q4H PRN (Reason: moderate to severe pain) L.acidoph,saliva-B.bif-S.therm [Acidophilus Probiotic Blend] 175 mg capsule 1 cap PO QID <Rosy Olvera MD - Last Filed: 04/11/24 16:23> Discharge Orders: Discharge Order (Routine); Ordered 04/13/24 Ordered By: David Burrell <Rosy Olvera MD - Last Filed: 04/11/24 16:23> Diet: Advance to usual diet <Rosy Olvera MD - Last Filed: 04/11/24 16:23> Advance to usual diet <David Burrell MD - Last Filed: 04/13/24 12:18> Activity on Discharge: As tolerated <Rosy Olvera MD - Last Filed: 04/11/24 16:23> As tolerated <David Burrell MD - Last Filed: 04/13/24 12:18> Stand Alone Forms: Patient Portal Discharge page <Rosy Olvera MD - Last Filed: 04/11/24 16:23> Print Language: Thai <Rosy Olvera MD - Last Filed: 04/11/24 16:23> Other Ambulatory Orders: Basic Metabolic Panel (Routine) Timeframe: 20240414 Facility: [facility] - Location: Laboratory Ordered By: Rosy Olvera <Rosy Olvera MD - Last Filed: 04/11/24 16:23> Care Plan Goals: Abdominal pain/constipation take Metamucil daily/drink plenty of fluids Recommend to take regular diet avoid fatty food and processed meat Mildly low potassium , check BMP on Sunday at doctor's office Ambulate as tolerated <Rosy Olvera MD - Last Filed: 04/11/24 16:23> Health Concerns: As above <Rosy Olvera MD - Last Filed: 04/11/24 16:23> Plan of Treatment: Outpatient follow-up with primary care physician keep appointment as previously planned <Rosy Olvera MD - Last Filed: 04/11/24 16:23> Assessment: As above <Rosy Olvera MD - Last Filed: 04/11/24 16:23>
[2024-04-11] MEDS: polyethylene glycoL 3350 17 GM POWD.PACK PO (16:53)
[2024-04-11] MEDS: Simethicone 80 MG TAB.CHEW PO (16:54)
[2024-04-11 19:55] VITALS: BP 125/85; PULSE 84; RESP 19; TEMP 36.9; O2SAT 94
[2024-04-11] MEDS: Dicyclomine HCl 10 MG CAPSULE PO (20:16)
[2024-04-11] MEDS: Docusate Sodium 100 MG CAPSULE 200 MG PO (20:16)
[2024-04-12] MEDS: Simethicone 80 MG TAB.CHEW PO ×3 (00:40→16:16)
[2024-04-12 04:07] VITALS: BP 131/83; PULSE 81; RESP 18; TEMP 36.9; O2SAT 94
[2024-04-12] MEDS: Omeprazole 20 MG CAPSULE.DR PO ×2 (05:31→16:16)
--- NOTE | 2024-04-12 06:53 | PC.NURSE ---
Phone call with Brandon, who informed me patient has been bit by 2 ticks recently, one fully engorged, and primary doctor neela blood cultures on 04/06, and results just came back this morning with positive results fro anaplasmosis
[2024-04-12 07:14] LABS: Anion Gap 14 (12-20); Blood Urea Nitrogen 10 mg/dL (9-16); Calcium 8.9 mg/dL (8.4-10.2); Carbon Dioxide 24 mmol/L (22-29); Chloride 102 mmol/L (96-108); Creatinine Clr Calc Pharmacy 85.6; Estimated Glomerular Filt Rate > 60; Glucose Random 100 mg/dL (60-115); Potassium 3.6 mmol/L (3.3-5.1); Sodium 136 mmol/L (135-145)
[2024-04-12 07:30] VITALS: BP 142/85; PULSE 92; RESP 18; TEMP 37.1; O2SAT 97
[2024-04-12] MEDS: 0.9 % Sodium Chloride Flush 3 ML SYRINGE IVFLUSH ×3 (09:41→21:48)
--- NOTE | 2024-04-12 14:21 | HO.PM.IMPN ---
Subjective Subjective Date of Service: 04/12/24 Interval History: late entry for 04/12 pt seen and examined multiple times throughout the day bedside d/w them at length about findings of work up thus far Physical Exam Vital Signs: Vital Signs: Last Vital Signs Temp 98.8 F 04/12/24 07:30 Pulse 92 04/12/24 07:30 Resp 18 04/12/24 07:30 BP 142/85 H 04/12/24 07:30 Pulse Ox 97 04/12/24 07:30 O2 Del Method Room Air 04/12/24 04:07 BMI result Body Mass Index 25.2 Const: Other: General awake alert x3, nontoxic appearing, in no acute distress. Moist mucous membrane Anicteric sclera Neck supple no JVD. CVS regular rate rhythm, Respiratory lungs clear to auscultation, no respiratory distress, Gastrointestinal abdomen soft, non tender, bowel sounds audible, no guarding , no rigidity. Extremities no edema. Neuro non focal Skin no rash Psych appropriate affect Objective Data Active Medications Acetaminophen (Acetaminophen 325 Mg Tablet) 650 mg PO Q6H PRN PRN Reason: Pain, Mild (Pain Scale 1-3), fever or headache Acetaminophen/Butalbital/Caffeine (Butalb/Acetamin/Caff 50/325/40 Tablet) 1 tab PO Q4H PRN PRN Reason: Migraine Headache Last Admin: 04/09/24 21:38 Dose: 1 tab Documented By: AGATA Al Hydroxide/Mg Hydroxide (Magnesium Hydrox/Alum Hydrox 30 Ml Oral.Susp) 30 ml PO Q4H PRN PRN Reason: Heartburn Calcium Carbonate (Calcium Carbonate 750 Mg Tab.Chew) 750 mg PO Q4H PRN PRN Reason: Heartburn Dicyclomine HCl (Dicyclomine Hcl 10 Mg Capsule) 10 mg PO Q6H PRN PRN Reason: Abdominal Discomfort Last Admin: 04/11/24 20:16 Dose: 10 mg Documented By: MIKE Docusate Sodium (Docusate Sodium 100 Mg Capsule) 200 mg PO BEDTIME [facility] Last Admin: 04/11/24 20:16 Dose: 200 mg Documented By: MIKE Enoxaparin Sodium (Enoxaparin Sodium 40 Mg/0.4 Ml Syringe) 40 mg SUBCUT Q24H [facility] Last Admin: 04/11/24 20:13 Dose: Not Given Documented By: MIKE Non-Admin Reason: Patient Refused Magnesium Hydroxide (Milk Of Magnesia 30 Ml Oral.Susp) 30 ml PO DAILY PRN PRN Reason: Constipation Melatonin (Melatonin 3 Mg Tablet) 6 mg PO BEDTIME PRN PRN Reason: Insomnia Omeprazole (Omeprazole 20 Mg Capsule.Dr) 20 mg PO BID@0630,1630 [facility] Last Admin: 04/12/24 05:31 Dose: 20 mg Documented By: MIKE Oxycodone HCl (Oxycodone Hcl Immed Release 5 Mg Tablet) 5 mg PO Q6H PRN PRN Reason: Pain, Moderate(Pain Scale 4-6) Last Admin: 04/08/24 18:02 Dose: 5 mg Documented By: ALEXY Polyethylene Glycol (Polyethylene Glycol 3350 17 Gm Powd.Pack) 17 gm PO DAILY PRN PRN Reason: Constipation Last Admin: 04/10/24 09:37 Dose: 17 gm Documented By: MAJOR Simethicone (Simethicone 80 Mg Tab.Chew) 80 mg PO QID PRN PRN Reason: flatulence Last Admin: 04/12/24 04:10 Dose: 80 mg Documented By: MIKE Sodium Chloride (0.9 % Sodium Chloride Flush 3 Ml Syringe) 3 ml IVFLUSH QSHIFT [facility] Last Admin: 04/12/24 09:41 Dose: 3 ml Documented By: LIZ Labs 04/11/24 05:43 04/12/24 05:31 Labs: Laboratory Results - last 24 hr 04/12/24 05:31 Hold Purple Top SEE NOTE Anion Gap 14 Estim Creat Clear Calc 85.6 Estimated GFR > 60 Random Glucose 100 Calcium 8.9 Assessment and Plan (1) Weakness generalized: Status: Acute (2) Abdominal pain: Status: Acute Plan 68-year-old gentleman with no significant past medical history presented with ongoing symptoms of abdominal pain, chills, decreased appetite, fatigue, constipation of several days duration, patient discharged from [facility] today with a diagnosis of enteritis and colitis due to entero toxigenic E coli managed conservatively as well as gastritis and duodenitis noted on upper endoscopy of note patient underwent a colonoscopy on 03/17 which showed an early tubular adenoma, patient being admitted to [facility] due to persistent symptoms of abdominal pain, chills, decreased appetite and constipation. Generalized abdominal pain/generalized weakness No acute etiology noted question related to recent bout of enteritis/colitis due to E coli, multiple courses of antibiotics, prolonged illness Elevated lipase, with no imaging evidence of acute pancreatitis, normal LFTs and normal CT abdomen and pelvis Blood cultures x2 negative, ESR 3, normal TSH and cortisol Immunoglobulin normal , hepatitis-C and HIV nonreactive, T spot pending Continue regular bland diet, add supplements due to decreased by mouth intake. Continue stool softeners, continue antispasmodic, gas X Recommend out of bed to chair and ambulation, Repeat lipase bumped to 254, case discussed with Dr. Hess will proceed with MRI mri done -- see report Mild acute hypokalemia will replete and follow labs. Gastritis/duodenitis continue PPI, avoid NSAIDs Group a strep throat, asymptomatic , avoid antibiotics Linear scarring/atelectasis at both lung bases, no evidence of acute infection, no cough, no shortness of breath, asymptomatic with normal WBC, no fever,Low ESR less likely connective tissue disease, pneumonia or PE rec OOB and IS. DVT prophylaxis with Lovenox/ambulation In my clinical judgment patient requires continued inpatient hospitalization for management of ongoing abdominal pain , generalized weakness and expert consultation. Quality Stroke Does the patient have a stroke diagnosis?: No VTE Prior VTE?: No VTE Risk Level:: Medical - moderate - high VTE Device Contraindication: Treatment Not Indicated VTE Drug Contraindication: N/A - Med Ordered
[2024-04-12 15:26] VITALS: BP 145/89; PULSE 88; RESP 12; TEMP 37.2; O2SAT 97
[2024-04-12] MEDS: polyethylene glycoL 3350 17 GM POWD.PACK PO (16:16)
[2024-04-12 20:00] VITALS: BP 144/86; PULSE 78; RESP 18; TEMP 37.2; O2SAT 96
[2024-04-12] MEDS: Docusate Sodium 100 MG CAPSULE 200 MG PO (21:48)
[2024-04-13 02:56] VITALS: BP 132/85; PULSE 83; RESP 16; TEMP 36.2; O2SAT 95
[2024-04-13 04:59] LABS: TS Negative Control Passed; TS Panel A 0; TS Panel B 0; TS Positive Control Passed; TSpotTB Negative (Negative)
[2024-04-13] MEDS: Omeprazole 20 MG CAPSULE.DR PO (05:53)
[2024-04-13 07:40] VITALS: BP 144/92; PULSE 78; RESP 14; TEMP 36.7; O2SAT 95
[2024-04-13] MEDS: 0.9 % Sodium Chloride Flush 3 ML SYRINGE IVFLUSH (09:22)
--- NOTE | 2024-04-13 12:28 | MHC.CM.PN ---
Addendum entered by Riya Marquez 04/13/24 12:29: TO TRANSPORT Original Note: PT WILL DC HOME TODAY WITH NO SERVICES
[2024-04-14 13:38] LABS: Myeloperoxidase Antibody <1.0 AI; Proteinase 3 PR3 Antibodies <1.0 AI
== END 2024-04-13 13:28 | disposition home or self-care (01) | DRG 373 ==
LOC: HO.ED 15:37 → HO.EDOVER 17:58 → HO.S3 04-09 09:35
PROVIDERS: Internal Medicine; Internal Medicine Gastroenterology; Admitting Provider Hospitalist; Emergency Provider Emergency Medicine; PCP Internal Medicine; Visit Provider Family Medicine
DX: A04.1 Enterotoxigenic Escherichia coli infection (principal); E87.6 Hypokalemia; Z79.899 Other long term (current) drug therapy
CPT/HCPCS: 36415; 70450; 71045; 74177; 74183; 80048; 80053; 81001; 81003; 82533; 82550; 82784; 83605; 83690; 84443; 85025; 85027; 85652; 86021; 86140; 86481; 86803; 87040; 87389; 99285; A9585; J2270; J2405; J7120; Q9967

== ENCOUNTER → 2024-04-08 13:19 | Outpatient (BNV) | payer MEDICARE, SELFPAY | PROVIDERS: Emergency Provider Emergency Medicine; Visit Provider Radiology Diagnostic Radiology | DX: R51.9 Headache, unspecified (principal) | CPT/HCPCS: 70450 ==

== ENCOUNTER → 2024-04-08 17:27 | Outpatient (BNV) | payer MEDICARE, SELFPAY | PROVIDERS: Admitting Provider Hospitalist; Emergency Provider Emergency Medicine; Visit Provider Internal Medicine Gastroenterology | DX: R53.1 Weakness (principal) | CPT/HCPCS: 99232 ==

== ENCOUNTER → 2024-04-08 17:27 | Outpatient (BNV) | payer MEDICARE, SELFPAY | PROVIDERS: Admitting Provider Hospitalist; Emergency Provider Emergency Medicine; Visit Provider Hospitalist | DX: R10.84 Generalized abdominal pain (principal); R53.1 Weakness | CPT/HCPCS: 99222; 99232 ==

== ENCOUNTER → 2024-04-08 17:27 | Outpatient (BNV) | payer MEDICARE, SELFPAY | PROVIDERS: Admitting Provider Hospitalist; Emergency Provider Emergency Medicine; Visit Provider Internal Medicine | DX: R53.1 Weakness (principal); R10.84 Generalized abdominal pain | CPT/HCPCS: 99222 ==